=== PATIENT | male | born 1960 | race Caucasian/White ===

== ENCOUNTER 2017-07-27 09:07 | Observation (INO) | payer OTHER ==
[~2017-07-27] VITALS: Ht 175.3 cm; Wt 145.7 kg
[~2017-07-27 09:07] MED LIST: BUPIVACAINE/EPINEPHRINE 0.5% 50 ML VIAL ONE; GABA300C5 PO; GELFOAM SIZE 100 ONE; GENTAMICIN SULFATE 80 MG/2 ML VIAL ONE; HYDR12.56 PO; LISI10TA3 PO; THROMBIN (TOPICAL) 5,000 UNIT VIAL ONE; TIZA4TAB PO; ceFAZolin 2 GM PREMIX 50 ML ONE; methylPREDNISolone ACETATE 40 MG/ML VIAL ONE
[2017-07-27] MEDS ORDERED: SODIUM CHLORID 0.9% 500 ML IV PRN (09:45)
[2017-07-27] MEDS ORDERED: CHLORHEXIDINE GLUCONATE 2 % 1 PACK (2 CLOTHS) TOPICAL PRN (09:45)
[2017-07-27] MEDS ORDERED: POVIDONE IODINE 5% (ANTISEPSIS KIT) 4 APPLICATIONS EACH NARE PRN (09:45)
[2017-07-27] MEDS ORDERED: LACTATED RINGER'S 1000 ML IV PRN (09:45)
[2017-07-27] MEDS ORDERED: INSULIN HUMAN REGULAR 1,000 UNITS/10 ML VIAL SQ PRN (09:45)
[2017-07-27] MEDS ORDERED: METOPROLOL TARTRATE 25 MG TAB PO PRN (09:45)
[2017-07-27] MEDS ORDERED: FLUT1INH7 INH (09:54)
[2017-07-27] MEDS ORDERED: VANCOMYCIN HCL 1000 MG ON-CALL/NS 250 ML IV SCH ×2 (10:00)
[2017-07-27] MEDS ORDERED: SODIUM CHLOR 0.9% 1000 ML INJ 1,000 ML IV SCH (10:00)
[2017-07-27 10:11] LABS: APTT (PATIENT) 39.2 SEC (24.3-30.1)
[2017-07-27] MEDS ORDERED: PROPOFOL 200 MG/20 ML AMP IV ONE (12:00)
[2017-07-27] MEDS ORDERED: GLYCOPYRROLATE 1 MG/5 ML SYRINGE IV PUSH ONE (12:00)
[2017-07-27] MEDS ORDERED: NEOSTIGMINE 3 MG/3 ML SYR IV ONE (12:00)
[2017-07-27] MEDS ORDERED: LACTATED RINGER'S 1000 ML INJ 1,000 ML IV ONE (12:00)
[2017-07-27] MEDS ORDERED: ONDANSETRON HCL 4 MG/2 ML VIAL IV PUSH ONE (12:00)
[2017-07-27] MEDS ORDERED: DEXAMETHASONE SOD PHOS 4 MG/ML VIAL IV ONE (12:00)
[2017-07-27] MEDS ORDERED: MIDAZOLAM HCL 2 MG/2 ML VIAL IV ONE (12:00)
[2017-07-27] MEDS ORDERED: PHENYLEPH/NS 1000 MCG/10 ML SYR IV ONE (12:00)
[2017-07-27] MEDS ORDERED: LIDOCAINE HCL 1% PF 5 ML AMPULE OTHER ONE (12:00)
[2017-07-27] MEDS ORDERED: ROCURONIUM INJ 50 MG/5 ML SYRINGE IV PUSH ONE (12:00)
[2017-07-27] MEDS ORDERED: PHENYLEPHRINE HCL 10 MG/ML VIAL IV ONE (12:00)
[2017-07-27] MEDS ORDERED: NORMOSOL R INJ 1,000 ML IV ONE (12:00)
[2017-07-27] MEDS ORDERED: ESMOLOL HCL 100 MG/10 ML VIAL IV ONE (12:00)
[2017-07-27] MEDS ORDERED: ACETAMINOPHEN 1000 MG/100 ML 100 ML IV ONE (12:12)
[2017-07-27] MEDS ORDERED: HYDROmorphone HCL PF 2 MG/ML VIAL ONE (12:13)
[2017-07-27] MEDS ORDERED: VANCOMYCIN HCL 1000 MG VIAL ONE (12:36)
[2017-07-27] MEDS ORDERED: SODIUM CHLORIDE 0.9% FLUSH 5 ML FLUSH IVF PRN (15:15)
[2017-07-27] MEDS ORDERED: MAGNESIUM HYDROXIDE SUSP 30 ML CUP PO PRN (15:15)
[2017-07-27] MEDS ORDERED: ACETAMINOPHEN/HYDROcodone 325 MG/10 MG TAB PO PRN (15:15)
[2017-07-27] MEDS ORDERED: GLUCAGON 1 MG/ML VIAL OTHER PRN (15:15)
[2017-07-27] MEDS ORDERED: RESP: ALBUTEROL 2.5 MG/3 ML NEB (PRN) INH (15:15)
[2017-07-27] MEDS ORDERED: ONDANSETRON HCL 4 MG/2 ML VIAL IV PRN (15:15)
[2017-07-27] MEDS ORDERED: CYCLOBENZAPRINE HCL 10 MG TAB PO PRN (15:15)
[2017-07-27] MEDS ORDERED: ACETAMINOPHEN 325 MG TAB PO PRN (15:15)
[2017-07-27] MEDS ORDERED: MORPHINE SULFATE 4 MG/ML INJ IV PUSH PRN ×2 (15:15)
[2017-07-27] MEDS ORDERED: MENTHOL LOZENGE BUCCAL PRN (15:15)
[2017-07-27] MEDS ORDERED: cloNIDine HCL 0.1 MG TAB PO/NG PRN (15:15)
[2017-07-27] MEDS ORDERED: DEXTROSE 50% IN WATER 50 ML VIAL(D50) IV PUSH PRN (15:15)
--- NOTE | 2017-07-27 15:57 | RADRPT ---
EXAM DATE/TIME: 07/27/2017 13:23 [place] COMPARISON: No previous studies available for comparison. INDICATIONS : Level Localization L4,L5 for laminectomy. MEDICAL HISTORY : None. SURGICAL HISTORY : None. ENCOUNTER: Initial ACUITY: 1 day PAIN SCORE: Non-responsive. LOCATION: [facility]. FINDINGS: FINDINGS: Single lateral view of the spine demonstrates the spine to be in anatomic alignment. A probe is in pl jamie at the L4-L5 disc space. CONCLUSION: 1. Postsurgical changes as above. Bunny Davies MD on July 27, 2017 at 15:55 Board Certified Radiologist. This report was verified electronically.
[2017-07-27] MEDS: SODIUM CHLOR 0.9% 1000 ML INJ 1,000 ML IV SCH (16:00)
[2017-07-27] MEDS ORDERED: HYDR-3583 PO (16:06)
--- NOTE | 2017-07-27 16:27 | PD.OP ---
Operative Report Date of Surgery: Jul 27, 2017 Preoperative Diagnosis: Lumbar spinal stenosis Postoperative Diagnosis: Lumbar spinal stenosis Procedure: L4-L5 decompressive left hemilaminectomy, mesial facetectomy, foraminotomy with microsurgical resection of the disc Anesthesia: general Surgeon: Ozzie Parson Leasing Professional(s): Heena Pope Operation and Findings: INDICATIONS FOR THE SURGICAL PROCEDURE Mr. Jung is a 57 year-old male who presented with intractable back pain and bishnu evidence of bilateral L5 lower extremity radiculopathy, worse on the left side. he had focal stenosis and a disk herniation. He failed maximum nonsurgical management including multiple modalities of conservative treatment as well as pain management interventions by an interventional pain specialist. A surgical decompression was indicated as a last resort. The [id number] details of the procedure, indications, alternatives, risks and potential complications were fully discussed with the patient. The patient fully understood. All the questions were answered. No guarantees were given. The patient voiced requesting the procedure and provided informed consents. The patient was offered the alternative of delaying the procedure and continuing with nonsurgical management. DETAILS OF THE SURGICAL PROCEDURE After the induction of general anesthesia, endotracheal intubation was performed. A Humphrey catheter, bilateral XIMENA hose and sequential compression devices were placed and kept throughout the procedure. The patient was positioned prone on a Keven table over a Matteo frame. All pressure points were carefully padded with eggcrate mattress. The eyes were tapped shut after ointment was applied by the anesthesiologist to prevent corneal abrasion. A Yesy hugger was placed over the exposed lower body to maintain control of the core body temperature. The lower lumbar region was prepped and draped in the usual sterile fashion. A spinal needle was placed on the paraspinal muscle and a cross-table lateral x-ray performed with a C-arm. The skin incision was made over the spinous process of L4 and L5 along the midline. Small subcutaneous bleeders were controlled with a bipolar. The subcutaneous tissue and thoracolumbar fascia was opened with the Bovie and the spinous process of L4 and L5 were exposed. Then, using a Snyder elevator and a Bovie a subperiosteal dissection was performed over the spinous process lamina and facet at L4 and L5 on the right side. A microdiscectomy self-retaining retractor was placed and an instrument was placed underneath the lamina of L5, and another cross-table lateral x-ray performed for radiological confirmation of the level. At this point in the procedure the operating microscope was draped in the usual sterile fashion and brought to the field. The rest of the surgical procedure was performed using microsurgical dissection technique with exception of the closure. Once the level was confirmed, a TPS drill brought to the field and a hemilaminectomy was performed at L4-L5 on the right side in standard fashion using the AM-8 drill bit, exposing the ligamentum flavum. The superior free border of the ligamentum flavum was from the dura with a ligament dissector and the ligamentum flavum was carefully removed with a 3 mm thin footplate Kerrison. The ligament Flavum and facets were significantly hypertrophic resulting on mass effect on the dural sac. Then, the medial aspect of the facet was drilled and undermined and the exiting L5 nerve root was identified and followed towards the foramen. A foraminotomy was performed with a 3 mm Kerrison. Then, the TPS drill was used to undermine the base of the spinous process, in order to carry out the decompression across the midline to the contralateral side. The ligamentum flavum across the midline was dissected from the dura with a ligament dissector and carefully removed with a 3 mm thin footplate Kerrison. An appropriate decompression of the dural sac and nerve root was achieved. Epidural veins located laterally to the dural sac were carefully coagulated with a bipolar and incised with microscissors. The dura was very scar and adherent to the anulus, and during the dissection a small durotomy was unavoidable, with CSF leak. Gentle medial retraction of the dural sac allowed inspection of the disc space. The patient had a broad-based disc protusion which combined with the hypertrophic facets and ligamentun flavum was producing significant stenosis with mass effect on the dural sac and nerve root. Microdiscectomy was then deemed necessary. The annulus fibrosus was thoroughly coagulated with the bipolar and incised with a #10 blade. Then, a microdiscectomy was carried out in the standard fashion using straight and up- biting pituitary forceps. A reverse angle curet was used to push the extruded disc fragments into the disc space so they could be removed with pituitary forceps. Special attention was placed on the middle nerve root and axilla of the nerve root where disc fragments were found, which were carefully dissected and pushed into the disc space and removed with the Kerrison. A good decompression was achieved. The disc space was then irrigated with antibiotic solution. The dura was repaired using 6-0 Prolene, and the repair was sealed using duraseal glue. The incision was then thoroughly irrigated with antibiotic solution and hemostasis secured with the bipolar. A Valsalva maneuver failed to show any cerebrospinal fluid leak or bleeding. The incision was irrigated and closed in layers. 0 Vicryl with interrupted sutures was used to close the thoracolumbar fascia and superficial fascia. The subcutaneous tissue was closed with 3-0 Vicryl. The skin was closed with 4-0 running subcuticular Vicryl. Dermabond was applied to the skin. At the end of the procedure, the sponge, needle and instrument counts were all correct. Estimated blood loss was less than 50 cc. No blood transfusion was given. No intraoperative complications occurred. The patient received prophylactic antibiotics. The patient was then extubated and transferred to the recovery room in stable condition Ozzie Parson MD Jul 27, 2017 16:27
[2017-07-27 17:00] VITALS: BP 121/63; PULSE 88; RESP 18; TEMP 97.7; O2SAT 96
[2017-07-27] MEDS: INSULIN ASPART SUPPLEMENTAL SCALE SQ SCH ×3 (17:00→21:00)
[2017-07-27] MEDS ORDERED: *morphine SULFATE 8 MG/ML PERIprocedure ONLY ONE (17:32)
[2017-07-27] MEDS: GABAPENTIN 300 MG CAP PO SCH (18:00)
[2017-07-27 19:40] VITALS: BP 107/58; PULSE 87; RESP 19; TEMP 96.7; O2SAT 95
[2017-07-27] MEDS: ACETAMINOPHEN/HYDROcodone 325 MG/10 MG TAB PO PRN (19:59)
[2017-07-27] MEDS: SODIUM CHLORIDE 0.9% FLUSH 5 ML FLUSH IVF SCH (19:59)
[2017-07-27] MEDS: DOCUSATE SODIUM 100 MG CAP PO SCH (20:55)
[2017-07-27] MEDS: ceFAZolin 2 GM PREMIX 50 ML IV SCH (20:58)
[2017-07-27] MEDS ORDERED: CHLORHEXIDINE GLUCONATE 4% SOLN 120 ML BTL TOP SCH (21:00)
[2017-07-27 23:30] VITALS: BP 98/58; PULSE 93; RESP 19; TEMP 96.8; O2SAT 94
[2017-07-28] MEDS: ACETAMINOPHEN/HYDROcodone 325 MG/10 MG TAB PO PRN ×3 (02:32→13:43)
[2017-07-28] MEDS: SODIUM CHLOR 0.9% 1000 ML INJ 1,000 ML IV SCH ×2 (02:32→12:00)
[2017-07-28 04:15] VITALS: BP 95/62; PULSE 80; RESP 18; TEMP 96.7; O2SAT 94
[2017-07-28] MEDS: ceFAZolin 2 GM PREMIX 50 ML IV SCH ×2 (05:52→13:22)
[2017-07-28 06:13] VITALS: O2SAT 95
[2017-07-28 08:00] VITALS: BP 98/58; PULSE 74; RESP 18; TEMP 96.5; O2SAT 100
[2017-07-28] MEDS: INSULIN ASPART SUPPLEMENTAL SCALE SQ SCH ×2 (08:00→12:00)
[2017-07-28] MEDS: DOCUSATE SODIUM 100 MG CAP PO SCH (08:33)
[2017-07-28] MEDS: GABAPENTIN 300 MG CAP PO SCH ×2 (08:33→13:22)
[2017-07-28] MEDS: SODIUM CHLORIDE 0.9% FLUSH 5 ML FLUSH IVF SCH (08:34)
[2017-07-28] MEDS ORDERED: LISINOPRIL 10 MG TAB PO SCH (09:00)
[2017-07-28] MEDS ORDERED: HYDROCHLOROTHIAZIDE 12.5 MG CAP PO SCH (09:00)
[2017-07-28] MEDS ORDERED: FLUTICASONE 200 MCG/VILANTEROL 25 MCG INHALER INH SCH (09:00)
[2017-07-28] MEDS ORDERED: PANTOPRAZOLE SOD 40 MG DELAYED RELEASE TAB PO SCH (09:00)
--- NOTE | 2017-07-28 10:29 | HHI.FF ---
Face to Face Verification Diagnosis: (1) S/P lumbar laminectomy Home Health Nursing Order: Signs/symptoms of disease process Wound care and dressing changes (please see wound care discharge instructions) Nursing assessment with vital signs I have seen patient Michael Jung on 07/28/17. My clinical findings support the need for the requested home health care services because: Med compliance is questionable I certify that my clinical findings support that this patient is homebound because: Post-op weakness Chen Peck Jul 28, 2017 10:29
[2017-07-28 12:00] VITALS: BP 100/66; PULSE 78; RESP 17; TEMP 97.1; O2SAT 100
--- NOTE | 2017-07-28 13:14 | HHI.DCPOC ---
Discharge Care Plan Diagnosis: (1) S/P lumbar laminectomy Goals to Promote Your Health * To prevent worsening of your condition and complications * To maintain your health at the optimal level Directions to Meet Your Goals Take your medications as prescribed Follow your dietary instruction Follow activity as directed Keep your appointments as scheduled Take your immunizations and boosters as scheduled If your symptoms worsen call your PCP, if no PCP go to Urgent Care Center or Emergency Room Smoking is Dangerous to Your Health. Avoid second hand smoke Call the 24-hour hour crisis hotline for domestic abuse at Chen Peck Jul 28, 2017 13:14
--- NOTE | 2017-07-28 13:14 | HHI.DS ---
Discharge Summary Admission Date Jul 27, 2017 at 15:16 Discharge Date: Jul 28, 2017 Admitting Diagnosis s/p lumbar laminectomy, microdiscectomy (1) S/P lumbar laminectomy ICD Code: Z98.890 - Other specified postprocedural states Brief History Mr. Jung is a 57 year-old male who presented with intractable back pain and bishnu evidence of bilateral L5 lower extremity radiculopathy, worse on the left side. he had focal stenosis and a disk herniation. He failed maximum nonsurgical management including multiple modalities of conservative treatment as well as pain management interventions by an interventional pain specialist. A surgical decompression was indicated as a last resort. Significant Findings Laboratory Tests Test 07/27/17 09:35 Activated Partial Thromboplast Time 39.2 SEC (24.3-30.1) Imaging Last Impressions Lumbar Spine X-Ray 07/27/17 0000 Signed Impressions: Service Date/Time: Thursday, July 27, 2017 13:23 - CONCLUSION: 1. Postsurgical changes as above. Bunny Davies MD PE at Discharge Mr. Jung is alert, awake and oriented to time, place and person. Speech is fluent. He is resting comfortably in bed in no acute distress. His wound is clean and dry. Cranial nerve examination: pupils to be equal, round and reactive to light. Extra-ocular movements are intact. Facial motor and symmetrical. Neck is soft and supple with a good range of motion without pain. Motor: moves all major muscle groups of both upper and lower extremities. There is a bilateral plantar flexion response. Hospital Course Mr. Jung underwent a L4-L5 decompressive left hemilaminectomy, mesial facetectomy, foraminotomy with microsurgical resection of the disc on Jul 27, 2017 for Lumbar spinal stenosis. He was placed on bed rest overnight for dural tear. He was cleared out of bed the following morning by Dr. Parson and discharged home with home health care. Wound care, activity restrictions, and signs and symptoms to watch for were discussed. Pt Condition on Discharge: Stable Discharge Disposition: Disch w/ Home Health Serv Discharge Instructions DIET: Follow Instructions for: Heart Healthy Diet ACTIVITIES You can perform: Weight Bearing As Maye ADDITIONAL Activity Instructio: Avoid strenuous activities, heavy lifting, overhead activities, repetitive bending, twisting, pushing, pulling or any activities which might result in stress over the spine. Avoid situation that will put at risk for falls. Use assistive device as needed for walking. Wear lumbar brace when out of bed. Follow up Referrals: SNF/LONG-TERM/HH with [facility] New Medications: Hydrocodone-Acetaminophen (Hydrocodone-Acetaminophen) 10-325 mg Tab 1 TAB PO Q8HR PRN for PAIN SCALE 1 TO 10, #90 TAB Continued Medications: Fluticasone-Vilanterol Inh (Breo Ellipta Inh) 200-25 Mcg/Act Inh 1 PUFF INH DAILY, #1 INHALER 0 Refills Use daily at the same time. Gabapentin (Gabapentin) 300 Mg Cap 300 MG PO TID Hydrochlorothiazide (Hydrochlorothiazide) 12.5 Mg Tab 12.5 MG PO DAILY Lisinopril (Lisinopril) 10 Mg Tab 10 MG PO DAILY Tizanidine (Tizanidine) 4 Mg Tab 4 MG PO Q8HR PRN for SPASM Chen Peck Jul 28, 2017 13:14
== END 2017-07-28 15:57 | disposition home health service (06) ==
LOC: HSDC 09:07 → HSDI 15:16 → N06B 17:56 → N06A 18:54
PROVIDERS: ADMIT Neurological Surgery; ATTEND Neurological Surgery
DX: M48.061 Spinal stenosis, lumbar region without neurogenic claudication (principal); M51.16 Intervertebral disc disorders with radiculopathy, lumbar region; I10 Essential (primary) hypertension; J44.9 Chronic obstructive pulmonary disease, unspecified; J45.909 Unspecified asthma, uncomplicated; K21.9 Gastro-esophageal reflux disease without esophagitis; G62.9 Polyneuropathy, unspecified; E66.9 Obesity, unspecified; Z87.891 Personal history of nicotine dependence; Z79.899 Other long term (current) drug therapy
CPT/HCPCS: 72020; 76000; 82948; 85730; 94150; 96361; 96365; 96375; 96376; G0378; G8987-GP; G8988-GP; J0131; J0690; J1030; J1100; J1170; J1580; J1815; J2250; J2270; J2370; J2405; J2710; J3010; J3370; J7030; J7050; J7120; L0627

== ENCOUNTER 2017-09-11 01:07 | Inpatient (IN) | payer OTHER ==
[~2017-09-11] VITALS: Ht 175.3 cm; Wt 138.1 kg
[2017-09-11] VITALS (11 sets, daily range): BP systolic 88–118; BP diastolic 51–63; PULSE 74–92; RESP 14–30; TEMP 97.6–99.5; O2SAT 92–99
[~2017-09-11 01:07] MED LIST changes: +BACT800T5 PO; -BUPIVACAINE/EPINEPHRINE 0.5% 50 ML VIAL ONE; +CEPH500C PO; +FLUT1INH7 INH; -GELFOAM SIZE 100 ONE; -GENTAMICIN SULFATE 80 MG/2 ML VIAL ONE; +METF500T; -THROMBIN (TOPICAL) 5,000 UNIT VIAL ONE; -ceFAZolin 2 GM PREMIX 50 ML ONE; -methylPREDNISolone ACETATE 40 MG/ML VIAL ONE
[2017-09-11] MEDS ORDERED: GADOBENATE DIM PF 529 MG/ML 5 ML VIAL (for RAD MRI) IV ONE (01:08)
[2017-09-11] MEDS: NOREPINEPHRINE-DEXTROSE DRIP 250 ML IV PRN ×2 (01:43→11:59)
[2017-09-11] MEDS ORDERED: PIPERACIL-TAZO 3.375 GM PREMIX 50 ML IV SCH (01:45)
[2017-09-11] MEDS ORDERED: TERBUTALINE INJ 1 MG/ML AMP SQ PRN (01:45)
[2017-09-11] MEDS ORDERED: diphenhydrAMINE HCL 50 MG/ML VIAL IV PUSH ONE (02:45)
--- NOTE | 2017-09-11 04:12 | HHI.HP ---
HPI Service Critical Care Medicine Primary Care Physician No Primary Care Physician Admission Diagnosis post operative complication Diagnosis: Travel History International Travel<30 Days: No Contact w/Intl Traveler <30 Da: No Traveled to Known Affected Are: No History of Present Illness 57 yo M with PMH of HTN, diabetes, obesity, and chronic LBP who underwent L4-L5 decompressive left hemilaminectomy, mesial facetectomy, foraminotomy with microsurgical resection of the disc on 07/27/[address] Parson. He was seen by Dr. aPrson in clinic on 09/09 due to pain in his left back. He was afebrile at that time but reportedly had warmth on his back and was started on Bactrim and Keflex which he took. At around 4 pm on 09/10 he developed "cold sweats", dizziness, and worsening back pain to the point that he said he could barely make it to the bathroom.. He presented to [facility]. There he had temp of 100.0. CT scan demonstrated 8.6 x 7 cm fluid collection in the superficial fascia. It was felt to represent seroma though hematoma or abscess could not be excluded. He had a normal white count of 10. He was hypotensive with blood pressure in the 60s. He was given 1 L NS bolus, epinephrine 0.3 mg subcut, benadryl 25 mg po, epi 1 mg IV, Vancomycin 2 gram, Zosyn 4.5 gram, Morphine 2mg IV and Zofran 4 mg IV at outside hospital. R IJ CVL was placed and he was started on levophed which is running at 5 g per KG per minute. [place] [facility] [place]. MRI has been ordered. He currently complains of low back pain and thirst. He has a diffuse blanching erythematous rash over his entire thorax anteriorly and posteriorly and all extremities. He states the rash was present upon arrival to the outside hospital and it is not pruritic. He does have some palmar pruritus without palmar rash. He denies chest pain, shortness of breath, wheezing. He states he has been on burst steroids in the past up to 3 days for "his breathing" but denies any prolonged steroid use. It does not appear that he receives steroids at the outside hospital. Review of Systems ROS Limitations: Clinical Condition Past Family Social History Allergies: Coded Allergies: methadone (Verified Allergy, Severe, RESPIRATORY ARREST, 09/11/17) sulfamethoxazole (Verified Allergy, Severe, 09/11/17) tetracycline (Verified Allergy, Severe, Rash, 09/11/17) A CHILD RASH TONGUE SWELLING trimethoprim (Verified Allergy, Severe, 09/11/17) cephalexin (Verified Allergy, Unknown, rash, 09/11/17) Received at same time as bactrim so unclear which abx caused it Past Medical History Hypertension Diabetes GERD Chronic low back pain Obesity Past Surgical History Right rotator cuff repair Hemorrhoidectomy Reported Medications Keflex 500 mg's by mouth every 8 hours Bactrim 1 tab by mouth twice a day Lisinopril 10 mg by mouth daily Gabapentin 300 mg by mouth 3 times a day HCTZ 12.5 mill grams by mouth daily Breo 1 puff inhaled daily Metformin 500 mg by mouth daily Family History Father had asthma and had a pulmonary embolus. Reportedly of kidney failure Social History He previously smoked "socially" for 8 years. Quit smoking 35 years ago He chews tobacco Drink alcohol occasionally No illicit drug use Physical Exam Vital Signs Vital Signs Date Time Temp Pulse Resp B/P (MAP) Pulse Ox O2 Delivery O2 Flow Rate FiO2 09/11/17 03:45 78 16 88/54 (65) 99 Room Air 09/11/17 02:19 76 22 99/51 (67) 98 Room Air 09/11/17 01:43 75 103/54 09/11/17 01:35 74 16 103/54 (70) 97 Room Air 09/11/17 01:13 97.6 82 18 90/62 (71) 97 Physical Exam GENERAL: Well-nourished, well-developed, pleasant, obese male who is laying in the ED gurney. SKIN: Warm and dry. There is diffuse blanching non-urticarial rash overlying anterior and posterior thorax and extremities that appears to be consistent with drug reaction HEAD: Atraumatic. Normocephalic. EYES: Pupils equal and round. No scleral icterus. No injection or drainage. ENT: No nasal bleeding or discharge. Mucous membranes pink and moist. NECK: Trachea midline. No JVD. CARDIOVASCULAR: Regular rate and rhythm, sinus rhythm on the monitor with rate in the 70s. No murmurs rubs or gallops. RESPIRATORY: Reading comfortably with no accessory muscle use. Clear to auscultation without wheezing. On room air with sats 99%. GASTROINTESTINAL: Abdomen soft, non-tender, nondistended. Palpation on his abdomen exacerbates his left low back pain but he denies abdominal pain. Hepatic and splenic margins not palpable. MUSCULOSKELETAL: Extremities without clubbing, cyanosis, or edema. No obvious deformities. NEUROLOGICAL: Awake and alert, oriented 3. No obvious cranial nerve deficits. Motor grossly within normal limits. Five out of 5 muscle strength in the arms and legs. Normal speech. Laboratory Laboratory Tests Test 09/11/17 03:25 Caprini VTE Risk Assessment Caprini Risk Assessment Model Point Value = 1 Point Value = 2 Point Value = 3 Point Value = 5 Age 41-60 Minor surgery BMI > 25 kg/m2 Swollen legs Varicose veins or History of unexplained or recurrent spontaneous Oral contraceptives or hormone replacement Sepsis (< 1 month) Serious lung disease, including pneumonia (< 1 month) Abnormal pulmonary function Acute myocardial infarction Congestive heart failure (< 1 month) History of inflammatory bowel disease Medical patient at bed rest Age 61-74 Arthroscopic surgery Major open surgery (> 45 min) Laparoscopic surgery (> 45 min) Malignancy Confined to bed (> 72 hours) Immobilizing plaster cast Central venous access Age >= 75 History of VTE Family history of VTE Factor V Leiden Prothrombin [id number] Lupus anticoagulant Anticardiolipin antibodies Elevated serum homocysteine Heparin-induced thrombocytopenia Other congenital or acquired thrombophilia Stroke (< 1 month) Elective arthroplasty Hip, pelvis, or leg fracture Acute spinal cord injury (< 1 month) Prophylaxis Regimen Total Risk Factor Score Risk Level Prophylaxis Regimen 0-1 Low Early ambulation 2 Moderate Order ONE of the following: *Sequential Compression Device (SCD) *Heparin 5000 units SQ BID 3-4 Higher Order ONE of the following medications: *Heparin 5000 units SQ TID *Enoxaparin/Lovenox 40 mg SQ daily (WT < 150 kg, CrCl > 30 mL/min) *Enoxaparin/Lovenox 30 mg SQ daily (WT < 150 kg, CrCl > 10-29 mL/min) *Enoxaparin/Lovenox 30 mg SQ BID (WT < 150 kg, CrCl > 30 mL/min) AND/OR *Sequential Compression Device (SCD) 5 or more Highest Order ONE of the following medications: *Heparin 5000 units SQ TID (Preferred with Epidurals) *Enoxaparin/Lovenox 40 mg SQ daily (WT < 150 kg, CrCl > 30 mL/min) *Enoxaparin/Lovenox 30 mg SQ daily (WT < 150 kg, CrCl > 10-29 mL/min) *Enoxaparin/Lovenox 30 mg SQ BID (WT < 150 kg, CrCl > 30 mL/min) AND *Sequential Compression Device (SCD) Assessment and Plan Assessment and Plan NEURO: Fluid collection ?abscess following L4/L5 decompressive laminectomy 07/27/17 Peripheral neuropathy MRI report pending Neurosurgery consulted for recommendations. Patient known to Dr. Parson. Adjust gabapentin due to renal failure Lortab as needed for pain. Morphine as needed for breakthrough pain RESP: Asthma On room air. Incentive spirometry every hour awake. Albuterol every 2 hours as needed. Continue Breo daily CV: Shock - presumably septic shock. Anaphylaxis is a possibility given his rash but there is no wheezing, respiratory symptoms, vomiting, diarrhea, or other anaphylactic symptoms so will presume sepsis until proven otherwise. Lactic acidemia History of essential hypertension Received 1 liter normal saline bolus at outside hospital. We'll give an additional 1 L now and initiate maintenance IV fluids On levophed wean to maintain mean arterial pressure greater than 65 Lactic acid at outside hospitals 3.1 Check cortisol, troponin, EKG Hold home lisinopril 10 daily due to hypotension and acute kidney injury. Hold HCTZ 12.5 mill grams by mouth daily. GI: GERD NPO. Protonix 40 mg by mouth daily FEN/RENAL: Acute kidney injury Creatinine at outside hospital was 2.15. Baseline creatinine 0.9. Received IV contrast at outside hospital 09/11 Insert Humphrey to monitor urine output as marker of perfusion. Monitor intake and output. Monitor electrolytes and replace as clinically indicated. Obtain urine eosinophils. Obtain CPK. Renal u/s. Bolus additional 1 L normal saline now. 0.9 NaCl at 125 L per hour ID: Drug reaction Fluid collection ?abscess following L4/L5 decompressive laminectomy 07/27/17 Appears there is drug reaction, presumably to his outpatient bactrim or keflex as patient says rash was present prior to presentation at outside hospital. Solumedrol 40 mg IV every 6 hours, Benadryl 50 IV every 6 hours, famotidine. Will hold pcn/cephalopsporin for now. Meropenem 1 g IV every 8 hours. Continue vancomycin with pharmacy consult for dosing. Reportedly blood cultures were sent at outside hospital. We'll need to call to follow-up results. Additional blood cultures were sent him [facility] ED. Will send urinalysis and urine culture as well. Neurosurgery to see regarding fluid collection and will obtain fluid culture. Obtained CRP. Consult ID. HEME: Monitor CBC ENDO: Diabetes mellitus Monitor bedside glucose closely particularly while on steroids. Initiate low- dose insulin sliding scale as indicated Hold metformin 500 daily PROPH: SCDs for DVT prophylaxis. Pharmacologic DVT prophylaxis when appropriate from neurosurgical standpoint. Protonix 40 mg by mouth daily for stress ulcer prophylaxis and history of GERD ACCESS: Right IJ central venous line placed at [facility] 09/11/17 Level III H&P Eleni Dyson MD Sep 11, 2017 04:12
[2017-09-11] MEDS ORDERED: SODIUM CHLOR 0.9% 1000 ML INJ 1,000 ML IV ONE (04:45)
[2017-09-11] MEDS ORDERED: MISCELLANEOUS PHARMACY INFORMATION XX PRN (05:00)
[2017-09-11] MEDS ORDERED: ASP: Documented allergy to Penicillins or Cephalosporins PRN (05:00)
[2017-09-11] MEDS ORDERED: Vancomycin Consult Pharmacy 1 EA OTHER SCH (05:00)
--- NOTE | 2017-09-11 05:00 | PD ---
HPI Chief Complaint: Fever Time Seen by Provider: 01:15 Travel History International Travel<30 days: No Contact w/Intl Traveler<30days: No Traveled to known affect area: No History of Present Illness HPI pt is a morbidly obese male that had a laminectomy from Dr Henderson in early july . in the last week he developed back pain over the incison sight and Dr henderson visit 2 days ago , was started on cellulitis coverage meds : Keflex and Bactrim , then pt developed severe weakness to his legs and and went to [facility] and was started on Zosyn and Vanco ..after a CT showed a large 7 x 8 cm collection in the soft tissue back @ L4 area , seroma vs abscess or dural leak questioned . Now pt transferred to NS service that did operation . Pt started on Levaphed 5 mcg/min and sent to [facility] . pt is awake and alert, no altered mental status , no leg weakness , denies bowel or bladder incontinence. I immediately order the MRI and call Dr Henderson to let him Know that the patient is in the ER and needs NS intervention , Pt vitals 103/60 on 5mcg/min of levophed. . Pt reports localized pain that caused him to feel he had leg weakness. However on Initial exam he was able to lift his legs bilaterally . Sensation also intact in lower legs. STAT MRI order and NS paged. [facility] Past Medical History Asthma: Yes Cancer: Yes (SKIN) COPD: Yes Diabetes: No Endocrine: No Gastrointestinal Disorders: No Genitourinary: No Hepatitis: No Hiatal Hernia: No Hypertension: Yes Immune Disorder: No Musculoskeletal: Yes Neurologic: Yes (NEUROPATHY) Psychiatric: No Reproductive: No Respiratory: Yes (COPD ASTHMA) Thyroid Disease: No Past Surgical History AICD: No Joint Replacement: No Pacemaker: No Other Surgery: Yes (LAMENECTOMY ) Social History Alcohol Use: Yes Tobacco Use: No Substance Use: No Allergies-Medications (Allergen,Severity, Reaction): Coded Allergies: methadone (Verified Allergy, Severe, RESPIRATORY ARREST, 09/11/17) sulfamethoxazole (Verified Allergy, Severe, 09/11/17) tetracycline (Verified Allergy, Severe, Rash, 09/11/17) A CHILD RASH TONGUE SWELLING trimethoprim (Verified Allergy, Severe, 09/11/17) cephalexin (Verified Allergy, Unknown, rash, 09/11/17) Received at same time as bactrim so unclear which abx caused it Reported Meds & Prescriptions Reported Meds & Active Scripts Active Cephalexin 500 Mg Cap 500 Mg PO Q8H Bactrim DS (Sulfamethoxazole-Trimethoprim) 800-160 Mg Tab 1 Tab PO BID Reported Metformin (Metformin HCl) 500 Mg Tab Breo Ellipta Inh (Fluticasone/Vilanterol) 200-25 Mcg/Act Inh 1 Puff INH DAILY Use daily at the same time. Hydrochlorothiazide 12.5 Mg Tab 12.5 Mg PO DAILY Gabapentin 300 Mg Cap 300 Mg PO TID Lisinopril 10 Mg Tab 10 Mg PO DAILY Review of Systems Except as stated in HPI: all other systems reviewed are Neg (pt reports localized pain and leg weakness) Musculoskeletal: Positive: Pain (lower back pain) Skin: Positive Rash Neurologic: Positive: Weakness, Other, No: Dizziness, Syncope, Focal Abnormalities, Coordination Problem, Tremor, Ataxia, Change in Mentation, Slurred Speech, Paresthesia, Incontinence, Seizures, Sensory Disturbance Physical Exam Narrative GENERAL: pt awake and laert talking in full sentences no AMS , bp 103/60 laying supine morbid obesity SKIN: Warm and dry. HEAD: Atraumatic. Normocephalic. EYES: Pupils equal and round. No scleral icterus. No injection or drainage. ENT: No nasal bleeding or discharge. Mucous membranes pink and moist. NECK: Trachea midline. No JVD. CARDIOVASCULAR: Regular rate and rhythm. RESPIRATORY: No accessory muscle use. Clear to auscultation. Breath sounds equal bilaterally. BACK L-spine tenderness midline GASTROINTESTINAL: Abdomen soft, non-tender, nondistended. Hepatic and splenic margins not palpable. MUSCULOSKELETAL: Extremities without clubbing, cyanosis, or edema. No obvious deformities. NEUROLOGICAL: Awake and alert. No obvious cranial nerve deficits. Motor grossly within normal limits. Five out of 5 muscle strength in the arms and legs. Normal speech. PSYCHIATRIC: Appropriate mood and affect; insight and judgment normal. Data Data Last Documented VS Vital Signs Date Time Temp Pulse Resp B/P (MAP) Pulse Ox O2 Delivery O2 Flow Rate FiO2 09/11/17 03:45 78 16 88/54 (65) 99 Room Air 09/11/17 01:13 97.6 Orders Orders Mri L Spine W&W/O Contrast (09/11/17 ) Piperacil-Tazo 3.375 Gm Premix (Zosyn 3. (11/18/17 01:45) Norepinephrine-Dextrose Drip (Levophed-D (09/11/17 01:45) Terbutaline Inj (Brethine Inj) (09/11/17 01:45) Lactic Acid Sepsis Protocol (09/11/17 01:40) Diphenhydramine Inj (Benadryl Inj) (09/11/17 02:45) Gadobenate Dimeglimine Pf Inj (Multihanc (09/11/17 01:08) Admit Order (Ed Use Only) (09/11/17 03:55) Labs Laboratory Tests Test 09/11/17 03:25 Lactic Acid Level 1.3 mmol/L MDM Medical Decision Making Medical Screen Exam Complete: Yes Emergency Medical Condition: Yes Differential Diagnosis post operative seroma , dural CSF leak into back soft tissue , vs epidural abscess less likely he was started vanco and zosyn at [facility] Narrative Course I read his transfer note explaining [facility] course with EPI amp given ? and then on Levaphed 5 mcg/min Pt is alert non toxic in appearance . strange presentation for a septic patient or post arrest ? pt his initial vitals are 103/60 on 5 mcg I called NS Dr Henderson associate answered and I told him of course in [place] and that I had ordered STAT MRI L-spine of pt. I called [facility] to alert of need for STAT MRI. and I re-evaluated need for continued pressor , When pt returned from MRI I admitted pt to ICU dr nazario and I discussed the pt and she wrote the orders for admit. I Ordered Zosyn 3.375Gr q 8hr and titration of the Levaphed. CC time 100minutes Critical Care Narrative CC time 100 mins as written above Diagnosis Primary Impression: Post-operative complication Qualified Codes: G97.82 - Other postprocedural complications and disorders of nervous system Additional Impressions: Spinal surgery in prior 3 months Status post spinal surgery Admitting Information Admitting Physician Requests: Admit Wayne Ruvalcaba MD Sep 11, 2017 04:59
[2017-09-11] MEDS: SODIUM CHLOR 0.9% 1000 ML INJ 1,000 ML IV SCH ×3 (05:08→21:08)
[2017-09-11] MEDS ORDERED: SENNOSIDES 8.6 MG TAB PO PRN (05:15)
[2017-09-11] MEDS ORDERED: MISCELLANEOUS NURSING INFORMATION XX SCH (05:15)
[2017-09-11] MEDS ORDERED: RESP: ALBUTEROL 2.5 MG/3 ML NEB (PRN) INH (05:15)
[2017-09-11] MEDS ORDERED: CHLORHEXIDINE GLUCONATE 2 % 1 PACK (2 CLOTHS) TOP PRN (05:15)
[2017-09-11] MEDS ORDERED: ONDANSETRON HCL 4 MG/2 ML VIAL IV PUSH PRN (05:15)
[2017-09-11] MEDS ORDERED: ACETAMINOPHEN/HYDROcodone 325 MG/5 MG TAB PO PRN (05:15)
[2017-09-11] MEDS ORDERED: MORPHINE SULFATE 2 MG/ML INJ IV PUSH PRN (05:15)
[2017-09-11] MEDS ORDERED: MAGNESIUM HYDROXIDE SUSP 30 ML CUP PO PRN (05:15)
[2017-09-11] MEDS ORDERED: LACTULOSE SYRUP 20 GM/30 ML CUP PO PRN (05:15)
[2017-09-11] MEDS ORDERED: MORPHINE SULFATE 4 MG/ML INJ IV PUSH PRN (05:15)
[2017-09-11] MEDS ORDERED: SODIUM CHLORIDE 0.9% FLUSH 10 ML FLUSH IV FLUSH PRN (05:15)
[2017-09-11] MEDS ORDERED: BISACODYL 10 MG SUPP RECTAL PRN (05:15)
--- NOTE | 2017-09-11 05:17 | RADRPT ---
EXAM DATE/TIME: 09/11/2017 02:46 [facility] COMPARISON: SPINE LUMBAR LATERAL ONLY, July 27, 2017, 13:23. INDICATIONS : Abscess. Post lumbar surgery. CONTRAST: 27 cc Multihance (gadobenate) IV MEDICAL HISTORY : Hypertension. Skin cancer. SURGICAL HISTORY : Discectomy, lumbar. Hemorrhoidectomy. Right side rotator cuff sx. ENCOUNTER: Initial ACUITY: 4-6 days PAIN SCORE: 8/10 LOCATION: Left lower back region. TECHNIQUE: Multiplanar multisequence MRI of the lumbar spine was performed with and without contrast. FINDINGS: There is a fluid filled sinus tract at the site of recent surgery which extends from the L4-5 disc, t hrough the left spinal canal, through the laminectomy site, and into the subcutaneous tissues. The s ubcutaneous component measures 7.9 x 5.0 cm and there is are 2 portions which extend to the dermal la zach. There is a thin connection measuring 6 mm in width which extends posterior to the spinous proce ss; a component adjacent to the spinous process measures 1 cm in size. The tract at the laminectomy defect measures 1.2 cm in width. A component in the bony spinal canal measures 1 cm in width and cau ses some flattening of the left margin of the thecal sac and appears to have a connection into the le ft facet joint. The tract at the margin of the disc measures 5 mm in width. The component within th e substance of the disc is thin but extends into the anterior one third of the disc. There is no enhancement within the fluid, however, there is irregular thickness enhancing soft tissue about the margin of subcutaneous and transverse view a components. There is a minimal amount of enh ancement adjacent to the annulus and no enhancement within the substance of the disc. The alignment of the vertebral bodies of the lumbar spine is maintained. No epidural fluid collectio ns seen and no deformity of the margins of the thecal sac above or below the level of the surgery. CONCLUSION: There is a fluid filled tract which communicates from the L4-5 disc, through the left bony spinal can al and into the subdermal soft tissues. The various components are measured above. There is enhance ment in the wall of the fluid collections in the the subcutaneous and intramuscular components of the tract. Aleksander Adler MD on September 11, 2017 at 5:00 Board Certified Radiologist. This report was verified electronically.
[2017-09-11 05:20] LABS: AUTOMATED NEUTROPHIL # 5.8 TH/MM3 (1.8-7.7); BASOPHIL % 0.2 % (0.0-2.0); EOSINOPHIL # 0.3 TH/MM3 (0-0.4); EOSINOPHIL % 4.4 % (0.0-4.0); HEMATOCRIT 35.9 % (39.0-51.0); HEMO FLAGS DIFF FINAL; LYMPH % 11.6 % (9.0-44.0); LYMPHOCYTE # 0.9 TH/MM3 (1.0-4.8); MEAN CELL VOLUME 87.9 FL (80.0-100.0); MEAN CORPUSCULAR HEMOGLOBIN 29.8 PG (27.0-34.0); MEAN CORPUSCULAR HGB CONC 33.9 % (32.0-36.0); MONO % 6.4 % (0.0-8.0); NEUT % 77.4 % (16.0-70.0); PLATELET COUNT 303 TH/MM3 (150-450); RED BLOOD COUNT 4.09 MIL/MM3 (4.50-5.90); RED CELL DISTRIBUTION WIDTH 14.3 % (11.6-17.2); WHITE BLOOD COUNT 7.5 TH/MM3 (4.0-11.0)
[2017-09-11] MEDS ORDERED: DEXTROSE 50% IN WATER 50 ML VIAL(D50) IV PUSH PRN (05:30)
[2017-09-11] MEDS ORDERED: GLUCAGON 1 MG/ML VIAL OTHER PRN (05:30)
[2017-09-11 05:47] LABS: ALT (GPT) 53 U/L (12-78); ANION GAP 7 MEQ/L (5-15); AST (GOT) 25 U/L (15-37); BICARBONATE 25.8 MEQ/L (21.0-32.0); BLOOD UREA NITROGEN 22 MG/DL (7-18); CHLORIDE 104 MEQ/L (98-107); GLOMERULAR FILTRATION RATE 38 ML/MIN (>89); POTASSIUM 3.7 MEQ/L (3.5-5.1); SODIUM (NA) 137 MEQ/L (136-145)
[2017-09-11 05:50] LABS: ALKALINE PHOSPHATASE 90 U/L (45-117); CREATINE KINASE 218 U/L (39-308); TOTAL BILIRUBIN ADULT 0.7 MG/DL (0.2-1.0)
[2017-09-11] MEDS ORDERED: FAMOTIDINE 20 MG/2 ML VIAL IV PUSH SCH (06:00)
--- NOTE | 2017-09-11 06:18 | RADRPT ---
EXAM DATE/TIME: 09/11/2017 05:03 [facility] COMPARISON: No previous studies available for comparison. INDICATIONS : Central Line placement MEDICAL HISTORY : Chronic obstructive pulmonary disease. Hypertension Skin cancer SURGICAL HISTORY : Laminectomy ENCOUNTER: Initial ACUITY: 1 day PAIN SCORE: 7/10 LOCATION: Bilateral chest FINDINGS: A single view of the chest demonstrates the lungs to be symmetrically aerated without evidence of mas s, infiltrate or effusion. No evidence pneumothorax. The cardiomediastinal contours are unremarkabl e. Osseous structures are intact. Right internal jugular catheter tip projects over the mid superio r vena cava. CONCLUSION: Right IJ catheter in good position. No evidence of pneumothorax. Aleksander Adler MD on September 11, 2017 at 6:17 Board Certified Radiologist. This report was verified electronically.
[2017-09-11] MEDS: methylPREDNISolone SOD SUCC 40 MG/1 ML VIAL IV PUSH SCH ×2 (06:41→11:58)
--- NOTE | 2017-09-11 07:37 | RADRPT ---
EXAM DATE/TIME: 09/11/2017 07:18 [facility] COMPARISON: No previous studies available for comparison. INDICATIONS : Increased BUN and creatinine. MEDICAL HISTORY : Hypertension. Gastroesophageal reflux disease. Neuropathy. COPD. Asthma. Hemorroid. Melenoma. SURGICAL HISTORY : Lamenectomy. Right rotator cuff surgery. ENCOUNTER: Initial ACUITY: 1 day PAIN SCORE: 0/10 LOCATION: Bilateral flank MEASUREMENTS: RIGHT KIDNEY: 11.3 x 5.0 x 5.6 cm LEFT KIDNEY: 13.0 x 5.5 x 5.7 cm FINDINGS: RIGHT KIDNEY: Renal cortex is normal in thickness and echotexture. No hydronephrosis, stone, or mass. LEFT KIDNEY: Renal cortex is normal in thickness and echotexture. No hydronephrosis, stone, or mass. BLADDER: Within normal limits given the degree of distension. CONCLUSION: Renal ultrasound within normal limits. Ramu Laguna MD on September 11, 2017 at 7:35 Board Certified Radiologist. This report was verified electronically.
[2017-09-11] MEDS ORDERED: MEROPENEM INJ 1,000 MG in SODIUM CHLORIDE 0.9% INJ 100 ML IV SCH (08:00)
[2017-09-11] MEDS: INSULIN ASPART SUPPLEMENTAL SCALE SQ SCH ×4 (08:00→21:00)
[2017-09-11] MEDS ORDERED: methylPREDNISolone SOD SUCC 125 MG/2 ML VIAL IV ONE (08:15)
[2017-09-11] MEDS: GABAPENTIN 100 MG CAP PO SCH ×3 (08:57→18:28)
[2017-09-11] MEDS: SODIUM CHLORIDE 0.9% FLUSH 10 ML FLUSH IV FLUSH SCH ×2 (08:58→21:00)
[2017-09-11] MEDS: PANTOPRAZOLE SOD 40 MG DELAYED RELEASE TAB PO SCH (08:58)
[2017-09-11] MEDS: diphenhydrAMINE HCL 50 MG/ML VIAL IV PUSH SCH ×2 (08:58→18:27)
[2017-09-11] MEDS: DOCUSATE SODIUM 50 MG/SENNA 8.6 MG TAB PO SCH ×2 (08:58→21:10)
[2017-09-11] MEDS: MEROPENEM INJ 1,000 MG in SODIUM CHLORIDE 0.9% INJ 100 ML IV SCH ×2 (09:00→21:09)
[2017-09-11] MEDS: FLUTICASONE 200 MCG/VILANTEROL 25 MCG INHALER INH SCH (09:00)
[2017-09-11] MEDS: ACETAMINOPHEN 325 MG TAB PO PRN ×2 (09:32→10:44)
[2017-09-11] MEDS ORDERED: diphenhydrAMINE HCL 50 MG/ML VIAL IV PUSH SCH (10:00)
[2017-09-11 10:45] LABS: BLOOD, URINE NEG (NEG); GLUCOSE,URINE NEG (NEG); KETONE, URINE NEG (NEG); NITRITE,URINE NEG (NEG); URINE COLOR LIGHT-YELLOW (YELLW/STRAW)
[2017-09-11 11:14] LABS: RBC, URINE 0-3 /hpf (0-3); SQUAMOUS EPITHELIAL CELL URINE 0-5 /hpf (0-5); WBC, URINE 0-2 /hpf (0-5)
[2017-09-11] MEDS: HYDROCORTISONE SOD SUCCINATE 100 MG VIAL IV PUSH SCH ×2 (11:58→18:00)
--- NOTE | 2017-09-11 12:37 | PD.CONS ---
History of Present Illness Service Infectious disease Consult Requested By Dr. Dyson Reason for Consult Evaluate patient with fluid collection in the operative site, status post lumbar laminectomy Primary Care Physician No Primary Care Physician Diagnoses: History of Present Illness Patient seen and examined. Records reviewed. 57 yo M with PMH of HTN, diabetes, obesity, and chronic LBP who underwent L4-L5 decompressive left hemilaminectomy, mesial facetectomy, foraminotomy with microsurgical resection of the disc on 07/27/[address] Parson. He was seen by Dr. Parson in clinic on 09/09 due to pain in his left back. He was afebrile at that time but reportedly had warmth on his back and was started on Bactrim and Keflex which he took. At around 4 pm on 09/10 he developed "cold sweats", dizziness, and worsening back pain to the point that he said he could barely make it to the bathroom.. He presented to [facility]. There he had temp of 100.0. CT scan demonstrated 8.6 x 7 cm fluid collection in the superficial fascia. It was felt to represent seroma though hematoma or abscess could not be excluded. He had a normal white count of 10. He was hypotensive with blood pressure in the 60s. He was given 1 L NS bolus, epinephrine 0.3 mg subcut, benadryl 25 mg po, epi 1 mg IV, Vancomycin 2 gram, Zosyn 4.5 gram, Morphine 2mg IV and Zofran 4 mg IV at outside hospital. R IJ CVL was placed and he was started on levophed which is running at 5 g per KG per minute. He was transferred to [facility] for neurosurgical consultation. MRI has been ordered. He currently complains of low back pain and thirst. He has a diffuse blanching erythematous rash over his entire thorax anteriorly and posteriorly and all extremities. He states the rash was present upon arrival to the outside hospital and it is not pruritic. He does have some palmar pruritus without palmar rash. He denies chest pain, shortness of breath, wheezing. He states he has been on burst steroids in the past up to 3 days for "his breathing" but denies any prolonged steroid use. It does not appear that he receives steroids at the outside hospital. Review of Systems Constitutional: DENIES: Fever, Weight loss Eyes: DENIES: Eye pain Ears, nose, mouth, throat: DENIES: Nasal discharge, Oral lesions, Throat pain, Ear Pain Respiratory: DENIES: Cough, Shortness of breath Cardiovascular: DENIES: Chest pain, Palpitations Gastrointestinal: DENIES: Abdominal pain, Constipation, Diarrhea, Nausea, Vomiting, Difficulty Swallowing Genitourinary: DENIES: Urinary incontinence, Urgency, Dysuria Musculoskeletal: COMPLAINS OF: Back pain, DENIES: Neck pain Integumentary: COMPLAINS OF: Pruritus, Rash Neurologic: DENIES: Headache, Localized weakness Psychiatric: DENIES: Hallucinations Past Family Social History Allergies: Coded Allergies: methadone (Verified Allergy, Severe, RESPIRATORY ARREST, 09/11/17) sulfamethoxazole (Verified Allergy, Severe, 09/11/17) tetracycline (Verified Allergy, Severe, Rash, 09/11/17) A CHILD RASH TONGUE SWELLING trimethoprim (Verified Allergy, Severe, 09/11/17) cephalexin (Verified Allergy, Unknown, rash, 09/11/17) Received at same time as bactrim so unclear which abx caused it Past Medical History Hypertension Diabetes GERD Chronic low back pain Obesity Past Surgical History Right rotator cuff repair Hemorrhoidectomy Lumbar hemilaminectomy Reported Medications I attest that I obtained, updated or reviewed the home and current medications. Reported Meds & Active Scripts Active Cephalexin 500 Mg Cap 500 Mg PO Q8H Bactrim DS (Sulfamethoxazole-Trimethoprim) 800-160 Mg Tab 1 Tab PO BID Reported Metformin (Metformin HCl) 500 Mg Tab Breo Ellipta Inh (Fluticasone/Vilanterol) 200-25 Mcg/Act Inh 1 Puff INH DAILY Use daily at the same time. Hydrochlorothiazide 12.5 Mg Tab 12.5 Mg PO DAILY Gabapentin 300 Mg Cap 300 Mg PO TID Lisinopril 10 Mg Tab 10 Mg PO DAILY Active Ordered Medications Current Medications Medications (Trade) Dose Ordered Sig/Cherry Route Start Time Stop Time Status Last Admin Norepinephrine Bitartrate 250 ml @ 7.5 mls/hr TITRATE PRN IV 09/11/17 01:45 09/11/17 11:59 (Brethine Inj) 1 mg UNSCH PRN SQ 09/11/17 01:45 (SoluMEDROL INJ) 40 mg Q6HR IV PUSH 09/11/17 06:00 09/11/17 11:58 (Pepcid Inj) 20 mg Q12H IV PUSH 09/11/17 06:00 09/11/17 06:41 Pharmacy Profile Note 0 ml @ 0 mls/hr UNSCH OTHER 09/11/17 05:00 (ASP Crit: Doc allergy to Penicillin/ Cephalosp) 1 UNSCH X1 PRN .XX 09/11/17 05:00 09/12/17 04:[address] ([facility] Pharmacy Information) 1 UNSCH X1 PRN XX 09/11/17 05:00 09/12/17 04:59 (Breo Ellipta 200-25 Inh) 1 puff DAILY INH 09/11/17 09:00 09/11/17 09:00 (Neurontin) 100 mg TID PO 09/11/17 09:00 09/11/17 12:02 Sodium Chloride 1,000 ml @ 125 mls/hr Q8H IV 09/11/17 05:08 09/11/17 05:08 (NS Flush) 2 ml UNSCH PRN IV FLUSH 09/11/17 05:15 (NS Flush) 2 ml BID IV FLUSH 09/11/17 09:00 09/11/17 08:58 (Tylenol) 650 mg Q6H PRN PO 09/11/17 05:15 09/11/17 09:32 ([place] 5-325 Mg) 1 tab Q4H PRN PO 09/11/17 05:15 (Morphine Inj) 2 mg Q2H PRN IV PUSH 09/11/17 05:15 (Protonix) 40 mg DAILY PO 09/11/17 09:00 09/11/17 08:58 (Zofran Inj) 4 mg Q6H PRN IV PUSH 09/11/17 05:15 (Albuterol Neb) 2.5 mg Q2HR NEB PRN INH 09/11/17 05:15 Miscellaneous Information 1 Q361D XX 09/11/17 05:15 (Chlorhexidine 2% Cloth) 3 pack Taper DAILY@04 TOP 09/12/17 04:00 09/08/18 03:59 (Chlorhexidine 2% Cloth) 3 pack UNSCH PRN TOP 09/11/17 05:15 (Magali-Colace) 1 tab BID PO 09/11/17 09:00 09/11/17 08:58 (Milk Of Magnesia Liq) 30 ml Q12H PRN PO 09/11/17 05:15 (Senokot) 17.2 mg Q12H PRN PO 09/11/17 05:15 (Dulcolax Supp) 10 mg DAILY PRN RECTAL 09/11/17 05:15 (Lactulose Liq) 30 ml DAILY PRN PO 09/11/17 05:15 ([place] 5-325 Mg) 2 tab Q6H PRN PO 09/11/17 05:15 (Morphine Inj) 4 mg Q4H PRN IV PUSH 09/11/17 05:15 (D50w (Vial) Inj) 50 ml UNSCH PRN IV PUSH 09/11/17 05:30 (Glucagon Inj) 1 mg UNSCH PRN OTHER 09/11/17 05:30 (NovoLOG SUPPLEMENTAL SCALE) 1 ACHS SLIDING SCALE SQ 09/11/17 08:00 09/11/17 11:57 (SoluCORTEF INJ) 50 mg Q6HR IV PUSH 09/11/17 12:00 09/11/17 11:58 (Benadryl Inj) 50 mg Q6H IV PUSH 09/11/17 10:00 09/11/17 08:58 Meropenem 1000 mg/ Sodium Chloride 100 ml @ 200 mls/hr Q12H IV 09/11/17 09:00 09/11/17 09:00 Family History Father had asthma and had a pulmonary embolus. Reportedly of kidney failure Social History He previously smoked "socially" for 8 years. Quit smoking 35 years ago He chews tobacco Drink alcohol occasionally No illicit drug use Physical Exam Vital Signs Vital Signs Date Time Temp Pulse Resp B/P (MAP) Pulse Ox O2 Delivery O2 Flow Rate FiO2 09/11/17 11:59 78 94/46 09/11/17 07:00 Room Air 09/11/17 06:10 09/11/17 06:00 97.9 76 27 118/62 (80) 92 09/11/17 06:00 Room Air 09/11/17 05:34 98 09/11/17 03:45 78 16 88/54 (65) 99 Room Air 09/11/17 02:19 76 22 99/51 (67) 98 Room Air 09/11/17 01:43 75 103/54 09/11/17 01:35 74 16 103/54 (70) 97 Room Air 09/11/17 01:13 97.6 82 18 90/62 (71) 97 Physical Exam GENERAL: Patient is an obese, well-developed male, awake and alert, not in respiratory distress. SKIN: Warm and dry. Has erythematous rash in UE, upper chest, back and some in upper thighs. Also has keratotic rash scattered in upper chest No ecchymoses and no evidence of embolic lesions. HEAD: Atraumatic. Normocephalic. No temporal wasting, or tenderness. EYES: [place] conjunctiva. No petechia or hemorrhage. Pupils equal, round and reactive to light. Extraocular movements full and intact. No scleral icterus. No injection or drainage. EARS, NOSE AND THROAT: Nose without bleeding or purulent nasal discharge. No sinus tenderness. Mucous membranes pink and moist. No oral lesions noted. No exudate. No oral thrush. NECK: Trachea midline. Supple and not tender, no meningeal signs. No lymphadenopathy CARDIOVASCULAR: Regular rate and rhythm. No murmurs, rubs or gallops heard RESPIRATORY: Clear to auscultation. Breath sounds equal bilaterally. No rales , wheezing or rhonchi ABDOMEN: Soft, obese, non-tender, nondistended. Bowel sounds present and normoactive. No guarding. No rebound. No organomegaly. BACK: Well healed incision in his lower back, with some erythema, min indurated , no fluctuance, not tended EXTREMITIES: No clubbing, cyanosis, or edema. No joint effusion, has good ROM. No calf tenderness. Well perfused and warm. Notable for the rash. NEUROLOGICAL: Awake and alert. Cranial nerves grossly intact. Motor grossly within normal limits. PSYCHIATRIC: Normal affect, calm and cooperative. LINE: No evidence of infection Laboratory Laboratory Tests Test 09/11/17 03:25 09/11/17 04:45 09/11/17 07:45 09/11/17 09:30 Lactic Acid Level 1.3 White Blood Count 7.5 Red Blood Count 4.09 Hemoglobin 12.2 Hematocrit 35.9 Mean Corpuscular Volume 87.9 Mean Corpuscular Hemoglobin 29.8 Mean Corpuscular Hemoglobin Concent 33.9 Red Cell Distribution Width 14.3 Platelet Count 303 Mean Platelet Volume 7.2 Neutrophils (%) (Auto) 77.4 Lymphocytes (%) (Auto) 11.6 Monocytes (%) (Auto) 6.4 Eosinophils (%) (Auto) 4.4 Basophils (%) (Auto) 0.2 Neutrophils # (Auto) 5.8 Lymphocytes # (Auto) 0.9 Monocytes # (Auto) 0.5 Eosinophils # (Auto) 0.3 Basophils # (Auto) 0.0 CBC Comment DIFF FINAL Differential Comment Blood Urea Nitrogen 22 Creatinine 1.85 Random Glucose 126 Total Protein 7.2 Albumin 2.9 Calcium Level 8.0 Alkaline Phosphatase 90 Aspartate Amino Transf (AST/SGOT) 25 Alanine Aminotransferase (ALT/SGPT) 53 Total Bilirubin 0.7 Sodium Level 137 Potassium Level 3.7 Chloride Level 104 Carbon Dioxide Level 25.8 Anion Gap 7 Estimat Glomerular Filtration Rate 38 Total Creatine Kinase 218 Troponin I LESS THAN 0.02 C-Reactive Protein 9.19 Lipase 139 Random Cortisol 8.4 Nasal Screen MRSA (PCR) MRSA NOT DETECTED Urine Color LIGHT-YELLOW Urine Turbidity CLEAR Urine pH 5.0 Urine Specific [place] 1.009 Urine Protein NEG Urine Glucose (UA) NEG Urine Ketones NEG Urine Occult Blood NEG Urine Nitrite NEG Urine Bilirubin NEG Urine Urobilinogen LESS THAN 2.0 Urine Leukocyte Esterase NEG Urine RBC 0-3 Urine WBC 0-2 Urine Squamous Epithelial Cells 0-5 Urine Bacteria NONE Urine Eosinophils NONE SEEN Test 09/11/17 11:00 Troponin I LESS THAN 0.02 Date/Time Source Procedure Growth Status 09/11/17 05:00 Blood Peripheral Aerobic Blood Culture Pending Received 09/11/17 05:00 Blood Peripheral Anaerobic Blood Culture Pending Received Result Diagram: 09/11/17 0445 09/11/17 0445 Imaging RADIOLOGY STUDIES/FILMS REVIEWED Renal Ultrasound 09/11/17 0000 Signed Impressions: Service Date/Time: Monday, September 11, 2017 07:18 - CONCLUSION: Renal ultrasound within normal limits. Ramu Laguna MD Lumbar Spine MRI 09/11/17 0000 Signed Impressions: Service Date/Time: Monday, September 11, 2017 02:46 - CONCLUSION: There is a fluid filled tract which communicates from the L4-5 disc, through the left bony spinal canal and into the subdermal soft tissues. The various components are measured above. There is enhancement in the wall of the fluid collections in the the subcutaneous and intramuscular components of the tract. Aleksander Adler MD Chest X-Ray 09/11/17 0000 Signed Impressions: Service Date/Time: Monday, September 11, 2017 05:03 - CONCLUSION: Right IJ catheter in good position. No evidence of pneumothorax. Aleksander Adler MD Assessment and Plan Assessment and Plan IMPRESSION Shock on presentation, on pressors, ?sepsis Fluid collection superficial in lumbar spine at surgical site, ?infected fluid Renal insufficiency Lactic acid normal, WBC normal Rash, etiology? - patient has taken Keflex and Bactrim in the past - he received IV Ancef for his surgery last Jul 27 RECOMMENDATION Patient got IV Vanco in [facility] Currently on Merem Follow C/S Check Vanco level today, will redose if needed Pressors for BP support D/W Dr Mcgowan, he will order aspiration of fluid collection in his back Monitor progress I will follow along with you Thank you for this consultation Discussed Condition With D/W Dr Mcgowan D/W Michelle Syed MD Sep 11, 2017 12:37
--- NOTE | 2017-09-11 13:10 | PD.CONS ---
History of Present Illness Service Neurosurgery Consult Requested By Footwear Sales Coordinator Reason for Consult Postoperative lumbar fluid collection Primary Care Physician No Primary Care Physician Diagnoses: History of Present Illness Mr. Jung is a 57-year-old male who underwent a left L4 5 decompressive semi- laminectomy medial facetectomy foraminotomy and discectomy on 07/27/2017. He states that prior to surgery he had some pain in the left proximal lower extremity. He states that he was doing recently well until last week when he started to develop increasing aching in the low back with some pain radiating back down the left lower extremity. He has no complaint of weakness or numbness in the lower extremities and no complaint of bowel or bladder dysfunction. He has not had any fevers or chills. He was seen back in the neurosurgery clinic on 09/09/2017 and was started on Keflex and Bactrim. However last evening he started getting dizzy and sweating with generalized weakness. He reported to [facility] emergency room for evaluation and was noted to be hypotensive with systolic blood pressure in the 60s. He was given vancomycin and Zosyn along with a fluid bolus. He was started on a Levophed IV drip for the hypotension and transferred to [facility] emergency room for further evaluation. Today he states that he feels much better. He still has some aching pain in the left leg. No complaining of significant dizziness, vertigo today. No nausea or vomiting. Review of Systems Constitutional: COMPLAINS OF: Dizziness, Night Sweats, DENIES: Weight loss Eyes: DENIES: Blurred vision, Diplopia Cardiovascular: DENIES: Chest pain, Palpitations Gastrointestinal: DENIES: Abdominal pain Musculoskeletal: COMPLAINS OF: Back pain, DENIES: Joint pain, Neck pain Neurologic: DENIES: Headache, Localized weakness Psychiatric: DENIES: Confusion Past Family Social History Allergies: Coded Allergies: methadone (Verified Allergy, Severe, RESPIRATORY ARREST, 09/11/17) sulfamethoxazole (Verified Allergy, Severe, 09/11/17) tetracycline (Verified Allergy, Severe, Rash, 09/11/17) A CHILD RASH TONGUE SWELLING trimethoprim (Verified Allergy, Severe, 09/11/17) cephalexin (Verified Allergy, Unknown, rash, 09/11/17) Received at same time as bactrim so unclear which abx caused it Past Medical History Diabetes Hypertension Morbid obesity Diabetes Hypertension Morbid obesity GERD Past Surgical History Lumbar laminectomy 07/27/2017 Right rotator cuff repair Reported Medications Reported Meds & Active Scripts Active Cephalexin 500 Mg Cap 500 Mg PO Q8H Bactrim DS (Sulfamethoxazole-Trimethoprim) 800-160 Mg Tab 1 Tab PO BID Reported Metformin (Metformin HCl) 500 Mg Tab Breo Ellipta Inh (Fluticasone/Vilanterol) 200-25 Mcg/Act Inh 1 Puff INH DAILY Use daily at the same time. Hydrochlorothiazide 12.5 Mg Tab 12.5 Mg PO DAILY Gabapentin 300 Mg Cap 300 Mg PO TID Lisinopril 10 Mg Tab 10 Mg PO DAILY Family History His father of kidney failure Social History He stopped smoking cigarettes over 3 years ago. Occasional alcohol use. He chews tobacco Physical Exam Vital Signs Vital Signs Date Time Temp Pulse Resp B/P (MAP) Pulse Ox O2 Delivery O2 Flow Rate FiO2 09/11/17 11:59 78 94/46 09/11/17 07:00 Room Air 09/11/17 06:10 09/11/17 06:00 97.9 76 27 118/62 (80) 92 09/11/17 06:00 Room Air 09/11/17 05:34 98 09/11/17 03:45 78 16 88/54 (65) 99 Room Air 09/11/17 02:19 76 22 99/51 (67) 98 Room Air 09/11/17 01:43 75 103/54 09/11/17 01:35 74 16 103/54 (70) 97 Room Air 09/11/17 01:13 97.6 82 18 90/62 (71) 97 Physical Exam Gen.: Morbidly obese gentleman, no apparent distress Integumentary: Well-healed incision just to the left of midline at the lower lumbar region. To the left of midline there is an area of protuberance at the skin surface coming to a small mildly erythematous lesion on the skin with palpable subcutaneous fluid collection. No active drainage. Neurologic: Awake alert oriented conversant and appropriate Reasonable judgment and insight No anxiety or depression Sensation intact to light touch throughout the lower extremities Strength is normal on major flexion and extension grooves, inversion and eversion of the foot in the right and left lower extremity except for mild weakness left extensor hallucis longus which he states is related to a previous distal left lower extremity injury. Laboratory Laboratory Tests Test 09/11/17 03:25 09/11/17 04:45 09/11/17 07:45 09/11/17 09:30 Lactic Acid Level 1.3 White Blood Count 7.5 Red Blood Count 4.09 Hemoglobin 12.2 Hematocrit 35.9 Mean Corpuscular Volume 87.9 Mean Corpuscular Hemoglobin 29.8 Mean Corpuscular Hemoglobin Concent 33.9 Red Cell Distribution Width 14.3 Platelet Count 303 Mean Platelet Volume 7.2 Neutrophils (%) (Auto) 77.4 Lymphocytes (%) (Auto) 11.6 Monocytes (%) (Auto) 6.4 Eosinophils (%) (Auto) 4.4 Basophils (%) (Auto) 0.2 Neutrophils # (Auto) 5.8 Lymphocytes # (Auto) 0.9 Monocytes # (Auto) 0.5 Eosinophils # (Auto) 0.3 Basophils # (Auto) 0.0 CBC Comment DIFF FINAL Differential Comment Blood Urea Nitrogen 22 Creatinine 1.85 Random Glucose 126 Total Protein 7.2 Albumin 2.9 Calcium Level 8.0 Alkaline Phosphatase 90 Aspartate Amino Transf (AST/SGOT) 25 Alanine Aminotransferase (ALT/SGPT) 53 Total Bilirubin 0.7 Sodium Level 137 Potassium Level 3.7 Chloride Level 104 Carbon Dioxide Level 25.8 Anion Gap 7 Estimat Glomerular Filtration Rate 38 Total Creatine Kinase 218 Troponin I LESS THAN 0.02 C-Reactive Protein 9.19 Lipase 139 Random Cortisol 8.4 Nasal Screen MRSA (PCR) MRSA NOT DETECTED Urine Color LIGHT-YELLOW Urine Turbidity CLEAR Urine pH 5.0 Urine Specific [place] 1.009 Urine Protein NEG Urine Glucose (UA) NEG Urine Ketones NEG Urine Occult Blood NEG Urine Nitrite NEG Urine Bilirubin NEG Urine Urobilinogen LESS THAN 2.0 Urine Leukocyte Esterase NEG Urine RBC 0-3 Urine WBC 0-2 Urine Squamous Epithelial Cells 0-5 Urine Bacteria NONE Urine Eosinophils NONE SEEN Test 09/11/17 11:00 Troponin I LESS THAN 0.02 Date/Time Source Procedure Growth Status 09/11/17 05:00 Blood Peripheral Aerobic Blood Culture Pending Received 09/11/17 05:00 Blood Peripheral Anaerobic Blood Culture Pending Received Result Diagram: 09/11/17 0445 09/11/17 0445 Imaging 09/11/2017 MRI lumbar spine images have been reviewed by the undersigned. Agree with findings as noted below: Renal Ultrasound 09/11/17 0000 Signed Impressions: Service Date/Time: Monday, September 11, 2017 07:18 - CONCLUSION: Renal ultrasound within normal limits. Ramu Laguna MD Lumbar Spine MRI 09/11/17 0000 Signed Impressions: Service Date/Time: Monday, September 11, 2017 02:46 - CONCLUSION: There is a fluid filled tract which communicates from the L4-5 disc, through the left bony spinal canal and into the subdermal soft tissues. The various components are measured above. There is enhancement in the wall of the fluid collections in the the subcutaneous and intramuscular components of the tract. Aleksander Adler MD Chest X-Ray 09/11/17 0000 Signed Impressions: Service Date/Time: Monday, September 11, 2017 05:03 - CONCLUSION: Right IJ catheter in good position. No evidence of pneumothorax. Aleksander Adler MD Assessment and Plan Assessment and Plan Impression: 1. Postoperative lumbar subcutaneous and deep paraspinous fluid collection tracking down to the left L4 5 disc space. Recommendations: Findings were discussed with the patient. Option of observation versus aspiration of the fluid collection to improve wound healing and obtain specimen for culture has been discussed. I have advised it would be prudent to obtain a fluid sample for culture. He does understand that there is a small risk of infection related to the needle aspiration of the fluid collection. He appears to understand the above and wishes to proceed with the lumbar fluid collection aspiration. Discussed with infectious disease. Cooper Mcgowan MD Sep 11, 2017 13:10
[2017-09-11] MEDS ORDERED: VANCOMYCIN INJ 1,000 MG in SODIUM CHLOR 0.9% 250 ML INJ 250 ML IV ONE (15:00)
--- NOTE | 2017-09-11 15:59 | EKG ---
Date Performed: 09/11/2017 Time Performed: 05:49:31 PTAGE: 57 years EKG: Sinus rhythm Compared to prior tracing no significant change NORMAL ECG PREVIOUS TRACING : 11/29/2003 23.37 DOCTOR: Bunny Ingram Interpretating Date/Time 09/11/2017 15:58:33
--- NOTE | 2017-09-11 15:59 | EKG ---
Date Performed: 09/11/2017 Time Performed: 07:32:57 PTAGE: 57 years EKG: Sinus rhythm Compared to prior tracing no significant change NORMAL ECG PREVIOUS TRACING : 11/29/2003 23.37 DOCTOR: Bunny Ingram Interpretating Date/Time 09/11/2017 15:58:49
[2017-09-11] MEDS ORDERED: VANCOMYCIN INJ 2,500 MG in SODIUM CHLORID 0.9% 500 ML INJ 500 ML IV ONE (16:00)
[2017-09-11] MEDS: FAMOTIDINE 20 MG/2 ML VIAL IV PUSH SCH (18:26)
--- NOTE | 2017-09-11 22:11 | PD.OP ---
Operative Report Date of Surgery: Sep 11, 2017 Preoperative Diagnosis: (1) S/P lumbar laminectomy Status post lumbar laminectomy with postoperative fluid collection at the wound site. Postoperative Diagnosis: (1) S/P lumbar laminectomy Status post lumbar laminectomy with postoperative fluid collection at the wound site. 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 The risks of the procedure including risk of infection was discussed. The patient was placed in a semiprone position. The lumbar region was sterilely prepped with first ChloraPrep and then separately with Betadine. Sterile drapes were applied around the procedure site. Appropriate tower procedure was performed with all personnel present and in agreement. The 1% Xylocaine without epinephrine was used for local infiltration of the needle puncture site which was performed approximately 3 cm medial and below the previous incision site in order to avoid direct entry into the most superficial portion of the fluid collection. The 20-gauge spinal needle was advanced into the fluid collection in a single pass and 100 cc of relatively clear colorless fluid was obtained which resulted in significant decrease tension along the wound site. The needle was withdrawn and the area massage to seal off the track. No residual leakage was noted. A sterile dressing was applied. The specimen was sent for routine Gram stain, C&S. The patient tolerated the procedure well with no new symptoms. There was no blood loss Cooper Mcgowan MD Sep 11, 2017 22:11
[2017-09-12] VITALS (9 sets, daily range): BP systolic 100–124; BP diastolic 54–63; PULSE 74–93; RESP 13–25; TEMP 95.5–98.3; O2SAT 94–100
[2017-09-12] MEDS: diphenhydrAMINE HCL 50 MG/ML VIAL IV PUSH SCH ×5 (00:17→17:48)
[2017-09-12] MEDS: HYDROCORTISONE SOD SUCCINATE 100 MG VIAL IV PUSH SCH ×4 (00:17→17:04)
[2017-09-12 00:55] LABS: GROSS BLOOD TUBE #2 0 (0); SUPERNATE COLOR TUBE #2 CLEAR (CLEAR); VOLUME TUBE # 2 7.5 ML
[2017-09-12 00:56] LABS: CSF EOSINOPHILS 1 %; CSF LYMPHOCYTES 6 %; CSF MONOCYTES 5 %; CSF NEUTROPHILS 88 %; GROSS BLOOD TUBE #4 0 (0); SUPERNATE COLOR TUBE #4 CLEAR (CLEAR)
[2017-09-12 01:00] LABS: WBC TUBE #4 201 /MM3 (0-10)
[2017-09-12] MEDS: CHLORHEXIDINE GLUCONATE 2 % 1 PACK (2 CLOTHS) TOP SCH (04:00)
[2017-09-12] MEDS: SODIUM CHLOR 0.9% 1000 ML INJ 1,000 ML IV SCH ×3 (05:08→20:50)
[2017-09-12 05:49] LABS: AUTOMATED NEUTROPHIL # 11.9 TH/MM3 (1.8-7.7); BASOPHIL % 0.1 % (0.0-2.0); HEMATOCRIT 34.8 % (39.0-51.0); HEMO FLAGS DIFF FINAL; LYMPH % 5.2 % (9.0-44.0); LYMPHOCYTE # 0.7 TH/MM3 (1.0-4.8); MEAN CELL VOLUME 89.3 FL (80.0-100.0); MEAN CORPUSCULAR HEMOGLOBIN 29.2 PG (27.0-34.0); MEAN CORPUSCULAR HGB CONC 32.8 % (32.0-36.0); NEUT % 91.7 % (16.0-70.0); PLATELET COUNT 287 TH/MM3 (150-450); WHITE BLOOD COUNT 12.9 TH/MM3 (4.0-11.0)
[2017-09-12 05:54] LABS: ANION GAP 6 MEQ/L (5-15); AST (GOT) 20 U/L (15-37); BICARBONATE 26.8 MEQ/L (21.0-32.0); BLOOD UREA NITROGEN 16 MG/DL (7-18); CHLORIDE 107 MEQ/L (98-107); GLOMERULAR FILTRATION RATE 82 ML/MIN (>89); MAGNESIUM 2.2 MG/DL (1.5-2.5); POTASSIUM 4.4 MEQ/L (3.5-5.1); SODIUM (NA) 140 MEQ/L (136-145)
[2017-09-12 05:57] LABS: ALKALINE PHOSPHATASE 82 U/L (45-117); ALT (GPT) 51 U/L (12-78); TOTAL BILIRUBIN ADULT 0.2 MG/DL (0.2-1.0)
[2017-09-12] MEDS: FAMOTIDINE 20 MG/2 ML VIAL IV PUSH SCH ×2 (06:13→17:05)
[2017-09-12] MEDS: INSULIN ASPART SUPPLEMENTAL SCALE SQ SCH ×4 (07:48→21:00)
[2017-09-12] MEDS: DOCUSATE SODIUM 50 MG/SENNA 8.6 MG TAB PO SCH ×2 (07:48→20:55)
[2017-09-12] MEDS: PANTOPRAZOLE SOD 40 MG DELAYED RELEASE TAB PO SCH (07:49)
[2017-09-12] MEDS: FLUTICASONE 200 MCG/VILANTEROL 25 MCG INHALER INH SCH (08:46)
[2017-09-12] MEDS: SODIUM CHLORIDE 0.9% FLUSH 10 ML FLUSH IV FLUSH SCH ×2 (08:47→20:50)
[2017-09-12] MEDS: MEROPENEM INJ 1,000 MG in SODIUM CHLORIDE 0.9% INJ 100 ML IV SCH ×2 (08:47→20:49)
[2017-09-12] MEDS: GABAPENTIN 100 MG CAP PO SCH ×3 (08:47→17:04)
--- NOTE | 2017-09-12 09:46 | HHI.NSPN ---
History Chief Complaint: Back tightness, buttock/thigh spasms. Interval History 09/11: Mr. Jung is a 57-year-old male who underwent a left L4 5 decompressive semi-laminectomy medial facetectomy foraminotomy and discectomy on 07/27/2017. He states that prior to surgery he had some pain in the left proximal lower extremity. He states that he was doing recently well until last week when he started to develop increasing aching in the low back with some pain radiating back down the left lower extremity. He has no complaint of weakness or numbness in the lower extremities and no complaint of bowel or bladder dysfunction. He has not had any fevers or chills. He was seen back in the neurosurgery clinic on 09/09/2017 and was started on Keflex and Bactrim. However last evening he started getting dizzy and sweating with generalized weakness. He reported to [facility] emergency room for evaluation and was noted to be hypotensive with systolic blood pressure in the 60s. He was given vancomycin and Zosyn along with a fluid bolus. He was started on a Levophed IV drip for the hypotension and transferred to [facility] emergency room for further evaluation. Today he states that he feels much better. He still has some aching pain in the left leg. No complaining of significant dizziness, vertigo today. No nausea or vomiting. 09/12: This morning the patient is seen up and about in the room. His gait is steady. He is disconnected from the monitor. He says his back feels tight and he has some spasms to the buttocks/back of the thighs. He does say he has numbness going down both lower extremities which he relates to circulation. Nursing reports that the patient has been haemodynamically stable and the norepinephrine drip was discontinued yesterday. System Review Comments MUSCULOSKELETAL: Back feels tight. Spasms to the buttocks/posterior thighs. NEUROLOGICAL: Numbness to the legs. Exam Results 09/10/17 09/10/17 09/11/17 09/11/17 09/12/17 09/12/17 06:00 18:00 06:00 18:00 06:00 18:00 Intake Total 229 ml 2200 ml 2600 ml Output Total 425 ml 4000 ml 860 ml Balance -196 ml -1800 ml 1740 ml Intake Oral 720 ml IV Total 229 ml 1480 ml 2600 ml Output Urine Total 425 ml 4000 ml 860 ml # Voids 1 # Bowel Movements 1 1 Vital Signs Date Time Temp Pulse Resp B/P (MAP) Pulse Ox O2 Delivery O2 Flow Rate FiO2 09/12/17 08:00 98.3 92 25 114/56 (75) 96 09/12/17 07:00 100 Room Air 09/12/17 06:00 74 09/12/17 04:00 98.1 80 18 112/57 (75) 95 09/12/17 04:00 80 09/12/17 02:00 78 09/12/17 00:00 97.9 84 13 106/57 (73) 95 09/12/17 00:00 84 09/11/17 22:00 88 09/11/17 20:00 84 09/11/17 20:00 98.0 84 30 112/56 (74) 96 09/11/17 19:00 95 Room Air 09/11/17 16:00 97.8 92 22 101/56 (71) 09/11/17 12:00 99.2 80 24 115/63 (80) 96 09/11/17 11:59 78 94/46 09/11/17 08:00 99.5 82 14 112/55 (74) 95 09/11/17 07:00 Room Air 09/11/17 06:10 09/11/17 06:00 97.9 76 27 118/62 (80) 92 09/11/17 06:00 Room Air 09/11/17 05:34 98 09/11/17 03:45 78 16 88/54 (65) 99 Room Air 09/11/17 02:19 76 22 99/51 (67) 98 Room Air 09/11/17 01:43 75 103/54 09/11/17 01:35 74 16 103/54 (70) 97 Room Air 09/11/17 01:13 97.6 82 18 90/62 (71) 97 Physical Examination GENERAL: Morbidly obese male up and about in the room. Affect is normal and he is not in any apparent distress. SKIN: Well-healed incision left of midline at the lower lumbar region w/erythema , slightly fluctuant, no evident drainage from needle drainage insertion site. MUSCULOSKELETAL: HECTOR w/o difficulty, NTTP, no evident deformity or clubbing. Well-healed left lateral lumbar surgical incision NTTP. NEUROLOGIC: AAOx3. Speech clear & appropriate. Follows simple commands w/o difficulty. Gait steady. Sensation is decreased to light touch to the anterior thighs bilaterally o/w intact to the lower extremities. Motor strength is 5/5 to all major flexion & extension muscle groups to the lower extremities except for the left extensor hallucis longus which is 4 to 4+/ 5. Lab, Micro, Other Results Recent Impressions Renal Ultrasound 09/11/17 0000 Signed Impressions: Service Date/Time: Monday, September 11, 2017 07:18 - CONCLUSION: Renal ultrasound within normal limits. Ramu Laguna MD Lumbar Spine MRI 09/11/17 0000 Signed Impressions: Service Date/Time: Monday, September 11, 2017 02:46 - CONCLUSION: There is a fluid filled tract which communicates from the L4-5 disc, through the left bony spinal canal and into the subdermal soft tissues. The various components are measured above. There is enhancement in the wall of the fluid collections in the the subcutaneous and intramuscular components of the tract. Aleksander Adler MD Chest X-Ray 09/11/17 0000 Signed Impressions: Service Date/Time: Monday, September 11, 2017 05:03 - CONCLUSION: Right IJ catheter in good position. No evidence of pneumothorax. Aleksander Adler MD Laboratory Tests Test 09/11/17 03:25 09/11/17 04:45 09/11/17 07:45 09/11/17 09:30 Lactic Acid Level 1.3 mmol/L White Blood Count 7.5 TH/MM3 Red Blood Count 4.09 MIL/MM3 Hemoglobin 12.2 GM/DL Hematocrit 35.9 % Mean Corpuscular Volume 87.9 FL Mean Corpuscular Hemoglobin 29.8 PG Mean Corpuscular Hemoglobin Concent 33.9 % Red Cell Distribution Width 14.3 % Platelet Count 303 TH/MM3 Mean Platelet Volume 7.2 FL Neutrophils (%) (Auto) 77.4 % Lymphocytes (%) (Auto) 11.6 % Monocytes (%) (Auto) 6.4 % Eosinophils (%) (Auto) 4.4 % Basophils (%) (Auto) 0.2 % Neutrophils # (Auto) 5.8 TH/MM3 Lymphocytes # (Auto) 0.9 TH/MM3 Monocytes # (Auto) 0.5 TH/MM3 Eosinophils # (Auto) 0.3 TH/MM3 Basophils # (Auto) 0.0 TH/MM3 CBC Comment DIFF FINAL Differential Comment Blood Urea Nitrogen 22 MG/DL Creatinine 1.85 MG/DL Random Glucose 126 MG/DL Total Protein 7.2 GM/DL Albumin 2.9 GM/DL Calcium Level 8.0 MG/DL Alkaline Phosphatase 90 U/L Aspartate Amino Transf (AST/SGOT) 25 U/L Alanine Aminotransferase (ALT/SGPT) 53 U/L Total Bilirubin 0.7 MG/DL Sodium Level 137 MEQ/L Potassium Level 3.7 MEQ/L Chloride Level 104 MEQ/L Carbon Dioxide Level 25.8 MEQ/L Anion Gap 7 MEQ/L Estimat Glomerular Filtration Rate 38 ML/MIN Total Creatine Kinase 218 U/L Troponin I LESS THAN 0.02 NG/ML C-Reactive Protein 9.19 MG/DL Lipase 139 U/L Random Cortisol 8.4 MCG/DL Nasal Screen MRSA (PCR) MRSA NOT DETECTED Urine Color LIGHT-YELLOW Urine Turbidity CLEAR Urine pH 5.0 Urine Specific [place] 1.009 Urine Protein NEG mg/dL Urine Glucose (UA) NEG mg/dL Urine Ketones NEG mg/dL Urine Occult Blood NEG Urine Nitrite NEG Urine Bilirubin NEG Urine Urobilinogen LESS THAN 2.0 MG/DL Urine Leukocyte Esterase NEG Urine RBC 0-3 /hpf Urine WBC 0-2 /hpf Urine Squamous Epithelial Cells 0-5 /hpf Urine Bacteria NONE /hpf Urine Eosinophils NONE SEEN /HPF Test 09/11/17 11:00 09/11/17 11:47 09/11/17 18:15 09/11/17 21:40 Troponin I LESS THAN 0.02 NG/ML LESS THAN 0.02 NG/ML Random Vancomycin Level 10.4 COMMENT CSF Volume (Tube 2) 7.5 ML CSF Supernatant Color (tube 2) CLEAR CSF Gross Blood (Tube 2) 0 CSF Volume (Tube 4) 6.0 ML CSF Supernatant Color (tube 4) CLEAR CSF Gross Blood (Tube 4) 0 CSF WBC (Tube 4) 201 /MM3 CSF RBC (Tube 4) 19 /MM3 CSF Neutrophils 88 % CSF Lymphocytes 6 % CSF Monocytes 5 % CSF Eosinophils 1 % CSF Glucose 131 MG/DL Test 09/12/17 05:00 White Blood Count 12.9 TH/MM3 Red Blood Count 3.90 MIL/MM3 Hemoglobin 11.4 GM/DL Hematocrit 34.8 % Mean Corpuscular Volume 89.3 FL Mean Corpuscular Hemoglobin 29.2 PG Mean Corpuscular Hemoglobin Concent 32.8 % Red Cell Distribution Width 14.0 % Platelet Count 287 TH/MM3 Mean Platelet Volume 7.6 FL Neutrophils (%) (Auto) 91.7 % Lymphocytes (%) (Auto) 5.2 % Monocytes (%) (Auto) 3.0 % Eosinophils (%) (Auto) 0.0 % Basophils (%) (Auto) 0.1 % Neutrophils # (Auto) 11.9 TH/MM3 Lymphocytes # (Auto) 0.7 TH/MM3 Monocytes # (Auto) 0.4 TH/MM3 Eosinophils # (Auto) 0.0 TH/MM3 Basophils # (Auto) 0.0 TH/MM3 CBC Comment DIFF FINAL Differential Comment Blood Urea Nitrogen 16 MG/DL Creatinine 0.94 MG/DL Random Glucose 163 MG/DL Total Protein 6.7 GM/DL Albumin 2.6 GM/DL Calcium Level 7.9 MG/DL Phosphorus Level 1.2 MG/DL Magnesium Level 2.2 MG/DL Alkaline Phosphatase 82 U/L Aspartate Amino Transf (AST/SGOT) 20 U/L Alanine Aminotransferase (ALT/SGPT) 51 U/L Total Bilirubin 0.2 MG/DL Sodium Level 140 MEQ/L Potassium Level 4.4 MEQ/L Chloride Level 107 MEQ/L Carbon Dioxide Level 26.8 MEQ/L Anion Gap 6 MEQ/L Estimat Glomerular Filtration Rate 82 ML/MIN Random Vancomycin Level 13.8 COMMENT Medical Decision Making Impression and Plan Impression: 1. Postoperative lumbar subcutaneous and deep paraspinous fluid collection tracking down to the left L4 5 disc space. Patient is doing well today. He is haemodynamically stable. Labs reviewed for today. Leukocytosis w/neutrophilia noted. Fluid culture Gram stain w/many WBCs noted, no organisms seen, culture pending. Blood cultures pending. POD #1 () s/p: Needle aspiration of lumbar postoperative soft tissue fluid collection Postoperative Diagnosis: (1) S/P lumbar laminectomy Status post lumbar laminectomy with postoperative fluid collection at the wound site. 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 Primary management per Paper Sorter/Hospitalist. Antibiotics per Infectious Disease. Patient is able to transfer to a regular med/surg floor from NSGY's perspective. ADDENDUM at 1121: Discussed patient with Dr Mcgowan. Since Gram stain is negative for any organisms the patient is okay for discharge from NSGY's perspective with outpatient follow up with Dr Parson. David Kothari Sep 12, 2017 09:46
--- NOTE | 2017-09-12 14:51 | HHI.CCPN ---
Subjective Remarks/Hospital Course Hospital Course: 57 yo M with PMH of HTN, diabetes, obesity, and chronic LBP who underwent L4-L5 decompressive left hemilaminectomy, mesial facetectomy, foraminotomy with microsurgical resection of the disc on 07/27/[address] Parson. He was seen by Dr. Parson in clinic on 09/09 due to pain in his left back. He was afebrile at that time but reportedly had warmth on his back and was started on Bactrim and Keflex which he took. At around 4 pm on 09/10 he developed "cold sweats", dizziness, and worsening back pain to the point that he said he could barely make it to the bathroom.. He presented to [facility]. There he had temp of 100.0. CT scan demonstrated 8.6 x 7 cm fluid collection in the superficial fascia. It was felt to represent seroma though hematoma or abscess could not be excluded. He had a normal white count of 10. He was hypotensive with blood pressure in the 60s. He was given 1 L NS bolus, epinephrine 0.3 mg subcut, benadryl 25 mg po, epi 1 mg IV, Vancomycin 2 gram, Zosyn 4.5 gram, Morphine 2mg IV and Zofran 4 mg IV at outside hospital. R IJ CVL was placed and he was started on levophed which is running at 5 g per KG per minute. [place] [facility] [place]. MRI has been ordered. He currently complains of low back pain and thirst. He has a diffuse blanching erythematous rash over his entire thorax anteriorly and posteriorly and all extremities. He states the rash was present upon arrival to the outside hospital and it is not pruritic. He does have some palmar pruritus without palmar rash. He denies chest pain, shortness of breath, wheezing. He states he has been on burst steroids in the past up to 3 days for "his breathing" but denies any prolonged steroid use. It does not appear that he receives steroids at the outside hospital. Subjective: 09/12: clinically improving. off vasopressors, on room air. wbc downtrending. patient states he wants to leave ICU. nsgy involved, as well as ID. Objective Vital Signs Date Time Temp Pulse Resp B/P (MAP) Pulse Ox O2 Delivery O2 Flow Rate FiO2 11/19/17 13:45 Room Air 09/12/17 12:00 98.1 80 18 124/62 (82) 100 Intake and Output 09/12/17 09/12/17 09/13/17 08:00 16:00 00:00 Intake Total 1000 ml Output Total 860 ml Balance 140 ml Result Diagram: 09/12/17 0500 09/12/17 0500 Objective Remarks GENERAL: Well-nourished, well-developed, pleasant, obese male who is sitting in chair. SKIN: Warm and dry. no rash evident on today's examination. HEAD: Atraumatic. Normocephalic. EYES: Pupils equal and round. No scleral icterus. No injection or drainage. ENT: No nasal bleeding or discharge. Mucous membranes pink and moist. NECK: Trachea midline. No JVD. right IJ tlc in place, site c/d/i. CARDIOVASCULAR: Regular rate and rhythm, sinus rhythm on the monitor RESPIRATORY: unlabored. equal chest rise. On room air with sats 99%. GASTROINTESTINAL: Abdomen soft, non-tender, nondistended. MUSCULOSKELETAL: Extremities without clubbing, cyanosis, or edema. No obvious deformities. NEUROLOGICAL: Awake and alert, oriented 3. No obvious cranial nerve deficits. Motor grossly within normal limits. A/P Assessment and Plan Assessment: 57yM s/p recent lumbar laminectomy now representing with septic shock and new lumbar fluid collection. clinically improving. continue iv abx, f/ u cultures. appreciate ID and Nsgy input. stable for transfer out of ICU. consult hospitalist service to assume care. NEURO: Fluid collection ?abscess following L4/L5 decompressive laminectomy 07/27/17 Peripheral neuropathy Neurosurgery consulted for recommendations. Patient known to Dr. Parson. gabapentin Lortab as needed for pain. Morphine as needed for breakthrough pain neuro exam at baseline. RESP: Asthma On room air. Incentive spirometry every hour awake. Albuterol every 2 hours as needed. Continue Breo daily CV: Septic Shock - resolved Lactic acidemia - resolved. History of essential hypertension s/p levophed. off vasopressors. d/c cvl. Lactic acid at outside hospitals 3.1, cleared. trops negative. Hold home lisinopril 10 daily due to hypotension and acute kidney injury. Hold HCTZ 12.5 mill grams by mouth daily. GI: GERD regular diet as tolerated. Protonix 40 mg by mouth daily FEN/RENAL: Acute kidney injury - resolved. Creatinine at outside hospital was 2.15. Baseline creatinine 0.9. Received IV contrast at outside hospital 09/11, Cr today normalizing. d/c hummel. SL IVF. ID: Drug reaction Fluid collection ?abscess following L4/L5 decompressive laminectomy 07/27/17 Appears there is drug reaction, presumably to his outpatient bactrim or keflex as patient says rash was present prior to presentation at outside hospital. Solumedrol 40 mg IV every 6 hours, Benadryl 50 IV every 6 hours, famotidine. Will hold pcn/cephalopsporin for now. Meropenem 1 g IV every 8 hours. Continue vancomycin with pharmacy consult for dosing. Reportedly blood cultures were sent at outside hospital. We'll need to call to follow-up results. Additional blood cultures were sent him [facility] ED. f/u all cultures. ID involved. HEME: Monitor CBC ENDO: Diabetes mellitus Monitor bedside glucose closely particularly while on steroids. Initiate low- dose insulin sliding scale as indicated Hold metformin 500 daily PROPH: SCDs for DVT prophylaxis. Pharmacologic DVT prophylaxis when appropriate from neurosurgical standpoint. Protonix 40 mg by mouth daily for stress ulcer prophylaxis and history of GERD ACCESS: Right IJ central venous line placed at [facility] 09/11/17 : will d/c today. dispo: transfer to floor. Laz Hamilton MD Sep 12, 2017 14:50
[2017-09-13] MEDS: HYDROCORTISONE SOD SUCCINATE 100 MG VIAL IV PUSH SCH ×3 (00:16→11:56)
[2017-09-13] MEDS: diphenhydrAMINE HCL 50 MG/ML VIAL IV PUSH SCH ×5 (00:20→23:36)
[2017-09-13 03:45] VITALS: BP 99/58; PULSE 64; RESP 19; TEMP 96.7; O2SAT 99
[2017-09-13] MEDS: CHLORHEXIDINE GLUCONATE 2 % 1 PACK (2 CLOTHS) TOP SCH (04:05)
[2017-09-13] MEDS: FAMOTIDINE 20 MG/2 ML VIAL IV PUSH SCH ×2 (05:21→17:18)
[2017-09-13] MEDS: SODIUM CHLOR 0.9% 1000 ML INJ 1,000 ML IV SCH ×3 (05:21→23:35)
[2017-09-13 07:49] VITALS: BP 144/73; PULSE 66; RESP 18; TEMP 95.8; O2SAT 98
[2017-09-13] MEDS: INSULIN ASPART SUPPLEMENTAL SCALE SQ SCH ×4 (08:00→21:00)
[2017-09-13] MEDS: GABAPENTIN 100 MG CAP PO SCH ×3 (08:07→17:18)
[2017-09-13] MEDS: FLUTICASONE 200 MCG/VILANTEROL 25 MCG INHALER INH SCH (08:07)
[2017-09-13] MEDS: MEROPENEM INJ 1,000 MG in SODIUM CHLORIDE 0.9% INJ 100 ML IV SCH (08:08)
[2017-09-13] MEDS: ACETAMINOPHEN/HYDROcodone 325 MG/5 MG TAB PO PRN (08:08)
[2017-09-13] MEDS: SODIUM CHLORIDE 0.9% FLUSH 10 ML FLUSH IV FLUSH SCH ×2 (08:08→23:35)
[2017-09-13] MEDS: PANTOPRAZOLE SOD 40 MG DELAYED RELEASE TAB PO SCH (08:14)
[2017-09-13] MEDS: DOCUSATE SODIUM 50 MG/SENNA 8.6 MG TAB PO SCH ×3 (08:14→23:35)
--- NOTE | 2017-09-13 10:11 | HHI.NSPN ---
(Chen Peck) Note Status Status: Progress Note (Chen Peck) Interval History Interval History Mr. Jung is a 57-year-old male who underwent a left L4 5 decompressive semi- laminectomy medial facetectomy foraminotomy and discectomy on 07/27/2017. He states that prior to surgery he had some pain in the left proximal lower extremity. He states that he was doing recently well until last week when he started to develop increasing aching in the low back with some pain radiating back down the left lower extremity. He has no complaint of weakness or numbness in the lower extremities and no complaint of bowel or bladder dysfunction. He has not had any fevers or chills. He was seen back in the neurosurgery clinic on 09/09/2017 and was started on Keflex and Bactrim. However last evening he started getting dizzy and sweating with generalized weakness. He reported to [facility] emergency room for evaluation and was noted to be hypotensive with systolic blood pressure in the 60s. He was given vancomycin and Zosyn along with a fluid bolus. He was started on a Levophed IV drip for the hypotension and transferred to [facility] emergency room for further evaluation. Today he states that he feels much better. He still has some aching pain in the left leg. No complaining of significant dizziness, vertigo today. No nausea or vomiting. 09/12: This morning the patient is seen up and about in the room. His gait is steady. He is disconnected from the monitor. He says his back feels tight and he has some spasms to the buttocks/back of the thighs. He does say he has numbness going down both lower extremities which he relates to circulation. Nursing reports that the patient has been haemodynamically stable and the norepinephrine drip was discontinued yesterday. 09/13: mild pulsating pain over the wound. denies fevers or chills. feeling much better today. hypotension improved. (Chen Peck) Labs, Micro, & Vital Signs Results Date Time Temp Pulse Resp B/P (MAP) Pulse Ox O2 Delivery O2 Flow Rate FiO2 09/13/17 07:49 95.8 66 18 144/73 (96) 98 09/13/17 03:45 96.7 64 19 99/58 (72) 99 09/12/17 23:31 96.7 93 19 100/54 (69) 95 09/12/17 19:37 97.1 91 19 104/63 (77) 94 09/12/17 16:00 95.5 84 18 122/60 (80) 95 09/12/17 13:45 Room Air 09/12/17 12:00 98.1 80 18 124/62 (82) 100 Constitutional Vital Signs Date Time Temp Pulse Resp B/P (MAP) Pulse Ox O2 Delivery O2 Flow Rate FiO2 09/13/17 07:49 95.8 66 18 144/73 (96) 98 09/13/17 03:45 96.7 64 19 99/58 (72) 99 09/12/17 23:31 96.7 93 19 100/54 (69) 95 09/12/17 19:37 97.1 91 19 104/63 (77) 94 09/12/17 16:00 95.5 84 18 122/60 (80) 95 09/12/17 13:45 Room Air 09/12/17 12:00 98.1 80 18 124/62 (82) 100 (Chen Peck) Physical Exam Alert and oriented x 3. Speech is fluent. Resting comfortably in bed. Lumbar incision healed with mild fluctuation without redness, warmth, drainage. Motor:5/5 to all major flexion & extension muscle groups to the lower extremities except for the left extensor hallucis longus which is 4 to 4+/5 Sensory: decreased to light touch to the anterior thighs bilaterally o/w intact to the lower extremities. (Chen Peck) Medications Current Medications Current Medications Medications (Trade) Dose Ordered Sig/Cherry Route PRN Reason Start Time Stop Time Status Last Admin Dose Admin Norepinephrine Bitartrate 250 ml @ 7.5 mls/hr TITRATE PRN IV Blood pressure management 09/11/17 01:45 09/11/17 11:59 Terbutaline Sulfate (Brethine Inj) 1 mg UNSCH PRN SQ For Extravasation 09/11/17 01:45 Pharmacy Profile Note 0 ml @ 0 mls/hr UNSCH OTHER 09/11/17 05:00 Fluticasone/ Vilanterol (Breo Ellipta 200-25 Inh) 1 puff DAILY INH 09/11/17 09:00 09/13/17 08:07 Gabapentin (Neurontin) 100 mg TID PO 09/11/17 09:00 09/13/17 08:07 Sodium Chloride 1,000 ml @ 125 mls/hr Q8H IV 09/11/17 05:08 09/13/17 05:21 Sodium Chloride (NS Flush) 2 ml UNSCH PRN IV FLUSH FLUSH AFTER USING IV ACCESS 09/11/17 05:15 09/13/17 00:17 Sodium Chloride (NS Flush) 2 ml BID IV FLUSH 09/11/17 09:00 09/12/17 20:50 Acetaminophen (Tylenol) 650 mg Q6H PRN PO FEVER >101F 09/11/17 05:15 09/11/17 09:32 Acetaminophen/ Hydrocodone Bitart (Disputanta 5-325 Mg) 1 tab Q4H PRN PO PAIN SCALE 1 TO 5 09/11/17 05:15 Morphine Sulfate (Morphine Inj) 2 mg Q2H PRN IV PUSH BREAKHTHROUGH PAIN 1-5 09/11/17 05:15 Pantoprazole Sodium (Protonix) 40 mg DAILY PO 09/11/17 09:00 09/11/17 08:58 Ondansetron HCl (Zofran Inj) 4 mg Q6H PRN IV PUSH NAUSEA OR VOMITING 09/11/17 05:15 Albuterol Sulfate (Albuterol Neb) 2.5 mg Q2HR NEB PRN INH SOB/WHEEZING 09/11/17 05:15 Miscellaneous Information 1 Q361D XX 09/11/17 05:15 Chlorhexidine Gluconate (Chlorhexidine 2% Cloth) 3 pack Taper DAILY@04 TOP 09/12/17 04:00 09/08/18 03:59 Chlorhexidine Gluconate (Chlorhexidine 2% Cloth) 3 pack UNSCH PRN TOP HYGIENIC CARE 09/11/17 05:15 Senna/Docusate Sodium (Magali-Colace) 1 tab BID PO 09/11/17 09:00 09/11/17 21:10 Magnesium Hydroxide (Milk Of Magnesia Liq) 30 ml Q12H PRN PO Mild constipation 09/11/17 05:15 Sennosides (Senokot) 17.2 mg Q12H PRN PO Moderate constipation 09/11/17 05:15 Bisacodyl (Dulcolax Supp) 10 mg DAILY PRN RECTAL SEVERE CONSITIPATION 09/11/17 05:15 Lactulose (Lactulose Liq) 30 ml DAILY PRN PO SEVERE CONSITIPATION 09/11/17 05:15 Acetaminophen/ Hydrocodone Bitart (Disputanta 5-325 Mg) 2 tab Q6H PRN PO PAIN 6-10 09/11/17 05:15 09/13/17 08:08 Morphine Sulfate (Morphine Inj) 4 mg Q4H PRN IV PUSH BREAKTHROUGH PAIN 6-09/11/17 05:15 Dextrose (D50w (Vial) Inj) 50 ml UNSCH PRN IV PUSH HYPOGLYCEMIA-SEE COMMENTS 09/11/17 05:30 Glucagon (Glucagon Inj) 1 mg UNSCH PRN OTHER HYPOGLYCEMIA-SEE COMMENTS 09/11/17 05:30 Insulin Aspart (NovoLOG SUPPLEMENTAL SCALE) 1 ACHS SLIDING SCALE SQ 09/11/17 08:00 09/12/17 17:00 Hydrocortisone Sodium Succinate (SoluCORTEF INJ) 50 mg Q6HR IV PUSH 09/11/17 12:00 09/13/17 05:21 Meropenem 1000 mg/ Sodium Chloride 100 ml @ 200 mls/hr Q12H IV 09/11/17 09:00 09/13/17 08:08 Famotidine (Pepcid Inj) 10 mg Q12H IV PUSH 09/11/17 18:00 09/13/17 05:21 Diphenhydramine HCl (Benadryl Inj) 50 mg Q6H IV PUSH 09/12/17 00:00 09/12/17 00:17 Vancomycin HCl 2500 mg/Sodium Chloride 525 ml @ 257.5 mls/ hr Q12H IV 09/13/17 11:00 Miscellaneous Information SPECIFIC LAB TO BE CHU... ONCE ONCE .XX 09/14/17 10:45 09/14/17 10:46 (Chen Peck) Medical Decision Making MDM Remarks 57 y/o male 1. probable pseudomeningocele at L4-5, so far needle aspiration of fluid collection negative for infection 2. Hypotension, resolved. blood cultures also so far negative (Chen Peck) Plan Plan Remarks cont antibiotic mgt - ID following, f/u final cultures cont supportive care (Chen Peck) Attending Statement The exam, history, and the medical decision-making described in the above note were completed with the assistance of the mid-level provider. I reviewed and agree with the findings presented. I attest that I had a [id number] encounter with the patient on the same day, and personally performed and documented my assessment and findings in the medical record. (Ozzie Parson MD) Chen Peck Sep 13, 2017 10:11 Ozzie Parson MD Sep 14, 2017 20:20
--- NOTE | 2017-09-13 11:40 | HHI.PR ---
Subjective Remarks Pt overall is feeling better. He reports some continued back pain. He is ambulating better His BP has been fluctuating up and down today Denies any dizziness, lightheadedness, palpitations, chest pain or SOB Objective Vitals Vital Signs Date Time Temp Pulse Resp B/P (MAP) Pulse Ox O2 Delivery O2 Flow Rate FiO2 09/13/17 07:49 95.8 66 18 144/73 (96) 98 09/13/17 03:45 96.7 64 19 99/58 (72) 99 09/12/17 23:31 96.7 93 19 100/54 (69) 95 09/12/17 19:37 97.1 91 19 104/63 (77) 94 09/12/17 16:00 95.5 84 18 122/60 (80) 95 09/12/17 13:45 Room Air 09/12/17 12:00 98.1 80 18 124/62 (82) 100 Result Diagram: 09/12/17 0500 09/12/17 0500 Other Results Laboratory Tests Test 09/11/17 11:47 09/11/17 18:15 09/11/17 21:40 09/12/17 05:00 Random Vancomycin Level 10.4 COMMENT 13.8 COMMENT Troponin I LESS THAN 0.02 NG/ML CSF Volume (Tube 2) 7.5 ML CSF Supernatant Color (tube 2) CLEAR CSF Gross Blood (Tube 2) 0 CSF Volume (Tube 4) 6.0 ML CSF Supernatant Color (tube 4) CLEAR CSF Gross Blood (Tube 4) 0 CSF WBC (Tube 4) 201 /MM3 CSF RBC (Tube 4) 19 /MM3 CSF Neutrophils 88 % CSF Lymphocytes 6 % CSF Monocytes 5 % CSF Eosinophils 1 % CSF Glucose 131 MG/DL White Blood Count 12.9 TH/MM3 Red Blood Count 3.90 MIL/MM3 Hemoglobin 11.4 GM/DL Hematocrit 34.8 % Mean Corpuscular Volume 89.3 FL Mean Corpuscular Hemoglobin 29.2 PG Mean Corpuscular Hemoglobin Concent 32.8 % Red Cell Distribution Width 14.0 % Platelet Count 287 TH/MM3 Mean Platelet Volume 7.6 FL Neutrophils (%) (Auto) 91.7 % Lymphocytes (%) (Auto) 5.2 % Monocytes (%) (Auto) 3.0 % Eosinophils (%) (Auto) 0.0 % Basophils (%) (Auto) 0.1 % Neutrophils # (Auto) 11.9 TH/MM3 Lymphocytes # (Auto) 0.7 TH/MM3 Monocytes # (Auto) 0.4 TH/MM3 Eosinophils # (Auto) 0.0 TH/MM3 Basophils # (Auto) 0.0 TH/MM3 CBC Comment DIFF FINAL Differential Comment Blood Urea Nitrogen 16 MG/DL Creatinine 0.94 MG/DL Random Glucose 163 MG/DL Total Protein 6.7 GM/DL Albumin 2.6 GM/DL Calcium Level 7.9 MG/DL Phosphorus Level 1.2 MG/DL Magnesium Level 2.2 MG/DL Alkaline Phosphatase 82 U/L Aspartate Amino Transf (AST/SGOT) 20 U/L Alanine Aminotransferase (ALT/SGPT) 51 U/L Total Bilirubin 0.2 MG/DL Sodium Level 140 MEQ/L Potassium Level 4.4 MEQ/L Chloride Level 107 MEQ/L Carbon Dioxide Level 26.8 MEQ/L Anion Gap 6 MEQ/L Estimat Glomerular Filtration Rate 82 ML/MIN Test 09/13/17 05:04 Random Vancomycin Level 3.4 COMMENT Imaging Last Impressions Renal Ultrasound 09/11/17 0000 Signed Impressions: Service Date/Time: Monday, September 11, 2017 07:18 - CONCLUSION: Renal ultrasound within normal limits. Ramu Laguna MD Lumbar Spine MRI 09/11/17 0000 Signed Impressions: Service Date/Time: Monday, September 11, 2017 02:46 - CONCLUSION: There is a fluid filled tract which communicates from the L4-5 disc, through the left bony spinal canal and into the subdermal soft tissues. The various components are measured above. There is enhancement in the wall of the fluid collections in the the subcutaneous and intramuscular components of the tract. Aleksander Adler MD Chest X-Ray 09/11/17 0000 Signed Impressions: Service Date/Time: Monday, September 11, 2017 05:03 - CONCLUSION: Right IJ catheter in good position. No evidence of pneumothorax. Aleksander Adler MD Objective Remarks General: NAD, AAOx3 Chest: CTA Cardiac: Regular Abd: +BS, soft ND/NT Ext: No edema A/P Problem List: (1) Post-operative complication ICD Codes: T81.9XXA - Unspecified complication of procedure, initial encounter Status: Acute Plan: - Patient is a 57 y/o male with HTN, diabetes, obesity, and chronic LBP who recently underwent L4-L5 decompressive left hemilaminectomy, mesial facetectomy, foraminotomy with microsurgical resection of the disc on by Dr. Parson. - He was seen outpt by Dr. Parson in clinic on 09/09 due to increased pain in his left back. He was afebrile at that time but reportedly had warmth on his back and was started on Bactrim and Keflex. - He presented to the ED at [facility] on 09/10 with "cold sweats", dizziness, and worsening back pain. There he had temp of 100.0. - CT Lumbar spine demonstrated 8.6 x 7 cm fluid collection in the superficial fascia. It was felt to represent seroma though hematoma or abscess could not be excluded. He had a normal white count of 10. He was hypotensive with blood pressure in the 60s. He was given 1 L NS bolus, Benadryl 25 mg po, epi 1 mg IV, Vancomycin 2 gram, Zosyn 4.5 gram, Morphine 2mg IV and Zofran 4 mg IV at outside hospital. R IJ CVL was placed and he was started on Levophed and he was transferred to [facility] [place] and admitted to ICU - Neurosurgery was consulted for recommendations - On 09/11 pt underwent needle aspiration of lumbar postoperative soft tissue fluid collection - Fluid cultures (09/11) with no growth in 48 hours - Pt was weaned off the vasopressors. - Blood cultures (09/11) with no growth x 2 days - Cont. Gabapentin - Lortab PRN and Morphine as needed for breakthrough pain - Pt reportedly had blood cultures drawn at [facility] prior to transfer to [facility]. Will try to obtain those results today. - Pt was started on Meropenem 1 g IV Q8H and Vancomycin on 09/11. Pharmacy dosing for the Vanc - ID following. (2) Rash and nonspecific skin eruption ICD Codes: R21 - Rash and other nonspecific skin eruption Status: Acute Plan: - Pt developed some sort of rash, etiology unclear, presumed to be related to his outpatient Bactrim or Keflex as patient says rash was present prior to presentation at outside hospital. - Pt is started on Solu-Cortef 50mg IV every 6 hours, Benadryl 50 IV every 6 hours, famotidine. - The PCN/Cephalopsporin were held - Cont. Meropenem and vanc - Decreased steroids to once daily and wean off over next few days (3) Asthma ICD Codes: J45.909 - Unspecified asthma, uncomplicated Status: Chronic Plan: - Home meds continued, Jeanniefranci Mariajosedeangelo - Pt is on RA - Cont. IS every hour WA - Albuterol every 2 hours as needed. (4) HTN (hypertension) ICD Codes: I10 - Essential (primary) hypertension Status: Chronic Plan: - Home meds, lisinopril 10 daily and HCTZ 12.5mg po daily have been held due to hypotension and acute kidney injury. - Monitor (5) Diabetes mellitus type 2, noninsulin dependent ICD Codes: E11.9 - Type 2 diabetes mellitus without complications Status: Chronic Plan: - NovoLog SSI - Accu checks - Monitor closely while on steroids. - Hold home OHA, metformin 500 daily (6) CLAUDY (acute kidney injury) ICD Codes: N17.9 - Acute kidney failure, unspecified Status: Acute Plan: - Resolved. - Creatinine at outside hospital was 2.15. Baseline creatinine 0.9. - Pt received IV contrast at outside hospital 09/11, Cr on 09/12 was 0.94 (7) S/P lumbar laminectomy ICD Codes: Z98.890 - Other specified postprocedural states Plan: - See above Problem Qualifiers (1) Post-operative complication: Qualified Codes: G97.82 - Other postprocedural complications and disorders of nervous system Sindi Crump Sep 13, 2017 11:40
[2017-09-13] MEDS: VANCOMYCIN INJ 2,500 MG in SODIUM CHLORID 0.9% 500 ML INJ 500 ML IV SCH ×2 (11:56→23:34)
[2017-09-13 12:00] VITALS: BP 91/49; PULSE 92; RESP 18; TEMP 95.4; O2SAT 97
[2017-09-13 13:44] VITALS: BP 124/56
--- NOTE | 2017-09-13 15:04 | HHI.IDPN ---
Subjective Subjective Remarks 57 yo M with PMH of HTN, diabetes, obesity, and chronic LBP who underwent L4-L5 decompressive left hemilaminectomy, mesial facetectomy, foraminotomy with microsurgical resection of the disc on 07/27/[address] Parson. He was seen by Dr. Parson in clinic on 09/09 due to pain in his left back. He was afebrile at that time but reportedly had warmth on his back and was started on Bactrim and Keflex which he took. At around 4 pm on 09/10 he developed "cold sweats", dizziness, and worsening back pain to the point that he said he could barely make it to the bathroom.. He presented to [facility]. There he had temp of 100.0. CT scan demonstrated 8.6 x 7 cm fluid collection in the superficial fascia. It was felt to represent seroma though hematoma or abscess could not be excluded. He had a normal white count of 10. He was hypotensive with blood pressure in the 60s. He was given 1 L NS bolus, epinephrine 0.3 mg subcut, benadryl 25 mg po, epi 1 mg IV, Vancomycin 2 gram, Zosyn 4.5 gram, Morphine 2mg IV and Zofran 4 mg IV at outside hospital. R IJ CVL was placed and he was started on levophed which is running at 5 g per KG per minute. He was [place] [facility] [place]. MRI has been ordered. He currently complains of low back pain and thirst. He has a diffuse blanching erythematous rash over his entire thorax anteriorly and posteriorly and all extremities. He states the rash was present upon arrival to the outside hospital and it is not pruritic. He does have some palmar pruritus without palmar rash. He denies chest pain, shortness of breath, wheezing. He states he has been on burst steroids in the past up to 3 days for "his breathing" but denies any prolonged steroid use. It does not appear that he receives steroids at the outside hospital. Notes reviewed Temps ok BP better, but still not his normal On steroids Still with back pain, and feels like there cindy lump in his back Aspiration done this weekend Had 261 WBC, mostly neutrophils, C/S negative BC from the other hospital were negative Patient however was on Bactrim and Keflex prior to hospitalization Antibiotics Vancomycin Meropenem Lines PIV Past Medical History Hypertension Diabetes GERD Chronic low back pain Obesity Past Surgical History Right rotator cuff repair Hemorrhoidectomy Lumbar hemilaminectomy Allergies: Coded Allergies: methadone (Verified Allergy, Severe, RESPIRATORY ARREST, 09/11/17) sulfamethoxazole (Verified Allergy, Severe, 09/11/17) tetracycline (Verified Allergy, Severe, Rash, 09/11/17) A CHILD RASH TONGUE SWELLING trimethoprim (Verified Allergy, Severe, 09/11/17) cephalexin (Verified Allergy, Unknown, rash, 09/11/17) Received at same time as bactrim so unclear which abx caused it Objective . Vital Signs Date Time Temp Pulse Resp B/P (MAP) Pulse Ox O2 Delivery O2 Flow Rate FiO2 09/13/17 13:44 124/56 (78) 09/13/17 12:00 95.4 92 18 91/49 (63) 97 09/13/17 07:49 95.8 66 18 144/73 (96) 98 09/13/17 03:45 96.7 64 19 99/58 (72) 99 09/12/17 23:31 96.7 93 19 100/54 (69) 95 09/12/17 19:37 97.1 91 19 104/63 (77) 94 09/12/17 16:00 95.5 84 18 122/60 (80) 95 . Laboratory Tests Test 09/12/17 05:00 White Blood Count 12.9 TH/MM3 Red Blood Count 3.90 MIL/MM3 Hemoglobin 11.4 GM/DL Hematocrit 34.8 % Mean Corpuscular Volume 89.3 FL Mean Corpuscular Hemoglobin 29.2 PG Mean Corpuscular Hemoglobin Concent 32.8 % Red Cell Distribution Width 14.0 % Platelet Count 287 TH/MM3 Mean Platelet Volume 7.6 FL Neutrophils (%) (Auto) 91.7 % Lymphocytes (%) (Auto) 5.2 % Monocytes (%) (Auto) 3.0 % Eosinophils (%) (Auto) 0.0 % Basophils (%) (Auto) 0.1 % Neutrophils # (Auto) 11.9 TH/MM3 Lymphocytes # (Auto) 0.7 TH/MM3 Monocytes # (Auto) 0.4 TH/MM3 Eosinophils # (Auto) 0.0 TH/MM3 Basophils # (Auto) 0.0 TH/MM3 CBC Comment DIFF FINAL Differential Comment Laboratory Tests Test 09/11/17 18:15 09/12/17 05:00 Troponin I LESS THAN 0.02 NG/ML Blood Urea Nitrogen 16 MG/DL Creatinine 0.94 MG/DL Random Glucose 163 MG/DL Total Protein 6.7 GM/DL Albumin 2.6 GM/DL Calcium Level 7.9 MG/DL Phosphorus Level 1.2 MG/DL Magnesium Level 2.2 MG/DL Alkaline Phosphatase 82 U/L Aspartate Amino Transf (AST/SGOT) 20 U/L Alanine Aminotransferase (ALT/SGPT) 51 U/L Total Bilirubin 0.2 MG/DL Sodium Level 140 MEQ/L Potassium Level 4.4 MEQ/L Chloride Level 107 MEQ/L Carbon Dioxide Level 26.8 MEQ/L Anion Gap 6 MEQ/L Estimat Glomerular Filtration Rate 82 ML/MIN Microbiology Date/Time Source Procedure Growth Status 09/11/17 05:00 Blood Peripheral Aerobic Blood Culture - Preliminary NO GROWTH IN 2 DAYS Resulted 09/11/17 05:00 Blood Peripheral Anaerobic Blood Culture - Preliminary NO GROWTH IN 2 DAYS Resulted 09/11/17 04:45 Blood Peripheral Aerobic Blood Culture - Preliminary NO GROWTH IN 2 DAYS Resulted 09/11/17 04:45 Blood Peripheral Anaerobic Blood Culture - Preliminary NO GROWTH IN 2 DAYS Resulted 09/11/17 21:40 Fluid Other Gram Stain - Final Resulted 09/11/17 21:40 Fluid Other Body Fluid Culture - Preliminary NO GROWTH IN 48 HOURS. Resulted Imaging Last Impressions Renal Ultrasound 09/11/17 0000 Signed Impressions: Service Date/Time: Monday, September 11, 2017 07:18 - CONCLUSION: Renal ultrasound within normal limits. Ramu Laguna MD Lumbar Spine MRI 09/11/17 0000 Signed Impressions: Service Date/Time: Monday, September 11, 2017 02:46 - CONCLUSION: There is a fluid filled tract which communicates from the L4-5 disc, through the left bony spinal canal and into the subdermal soft tissues. The various components are measured above. There is enhancement in the wall of the fluid collections in the the subcutaneous and intramuscular components of the tract. Aleksander Adler MD Chest X-Ray 09/11/17 0000 Signed Impressions: Service Date/Time: Monday, September 11, 2017 05:03 - CONCLUSION: Right IJ catheter in good position. No evidence of pneumothorax. Aleksander Adler MD Physical Exam GENERAL: awake and alert, not in respiratory distress. SKIN: Warm and dry. Has erythematous rash in UE, upper chest, back and some in upper thighs. Also has keratotic rash scattered in upper chest No ecchymoses and no evidence of embolic lesions. HEAD: Atraumatic. Normocephalic. No temporal wasting, or tenderness. EYES: Merigold conjunctiva. No petechia or hemorrhage. Pupils equal, round and reactive to light. Extraocular movements full and intact. No scleral icterus. No injection or drainage. EARS, NOSE AND THROAT: Nose without bleeding or purulent nasal discharge. No sinus tenderness. Mucous membranes pink and moist. No oral lesions noted. No exudate. No oral thrush. NECK: Trachea midline. Supple and not tender, no meningeal signs. No lymphadenopathy CARDIOVASCULAR: Regular rate and rhythm. No murmurs, rubs or gallops heard RESPIRATORY: Clear to auscultation. Breath sounds equal bilaterally. No rales , wheezing or rhonchi ABDOMEN: Soft, obese, non-tender, nondistended. Bowel sounds present and normoactive. No guarding. No rebound. No organomegaly. BACK: Well healed incision in his lower back, with improving erythema, min indurated, seems pacheco today EXTREMITIES: No clubbing, cyanosis, or edema. No joint effusion, has good ROM. No calf tenderness. Well perfused and warm. Notable for the rash. NEUROLOGICAL: Awake and alert. Cranial nerves grossly intact. Motor grossly within normal limits. PSYCHIATRIC: Normal affect, calm and cooperative. 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 better - patient has taken Keflex and Bactrim in the past - he received IV Ancef for his surgery last Jul 27 RECOMMENDATION Patient got IV Vanco in [facility] Follow C/S Continue IV Vanco ?Reimage, ?reevaluate if increase size of fluid collection Monitor progress Explained plan to patient D/W Michelle Sinclair MD Sep 13, 2017 15:04
[2017-09-13 16:00] VITALS: BP 119/58; PULSE 71; RESP 18; TEMP 95.5; O2SAT 98
[2017-09-13 20:20] VITALS: BP 105/51; PULSE 61; RESP 16; TEMP 96.9; O2SAT 97
[2017-09-14 00:25] VITALS: BP 94/47; PULSE 70; RESP 16; TEMP 96.8; O2SAT 97
[2017-09-14] MEDS: CHLORHEXIDINE GLUCONATE 2 % 1 PACK (2 CLOTHS) TOP SCH ×2 (04:00→20:47)
[2017-09-14] MEDS: ACETAMINOPHEN/HYDROcodone 325 MG/5 MG TAB PO PRN ×2 (04:06→13:01)
[2017-09-14] MEDS: diphenhydrAMINE HCL 50 MG/ML VIAL IV PUSH SCH ×5 (04:06→20:48)
[2017-09-14] MEDS: FAMOTIDINE 20 MG/2 ML VIAL IV PUSH SCH ×3 (04:06→20:48)
[2017-09-14 04:25] VITALS: BP 117/62; PULSE 74; RESP 16; TEMP 96.4; O2SAT 97
[2017-09-14 05:08] LABS: AUTOMATED NEUTROPHIL # 3.7 TH/MM3 (1.8-7.7); BASOPHIL % 0.5 % (0.0-2.0); EOSINOPHIL # 0.2 TH/MM3 (0-0.4); EOSINOPHIL % 2.8 % (0.0-4.0); HEMATOCRIT 34.4 % (39.0-51.0); HEMO FLAGS DIFF FINAL; LYMPH % 34.3 % (9.0-44.0); LYMPHOCYTE # 2.3 TH/MM3 (1.0-4.8); MEAN CELL VOLUME 89.5 FL (80.0-100.0); MEAN CORPUSCULAR HEMOGLOBIN 30.1 PG (27.0-34.0); MEAN CORPUSCULAR HGB CONC 33.6 % (32.0-36.0); MONO % 7.5 % (0.0-8.0); NEUT % 54.9 % (16.0-70.0); PLATELET COUNT 267 TH/MM3 (150-450); RED BLOOD COUNT 3.84 MIL/MM3 (4.50-5.90); RED CELL DISTRIBUTION WIDTH 14.2 % (11.6-17.2); WHITE BLOOD COUNT 6.8 TH/MM3 (4.0-11.0)
[2017-09-14] MEDS: SODIUM CHLOR 0.9% 1000 ML INJ 1,000 ML IV SCH ×4 (05:08→20:48)
[2017-09-14 05:30] LABS: BICARBONATE 26.1 MEQ/L (21.0-32.0); MAGNESIUM 2.2 MG/DL (1.5-2.5); POTASSIUM 3.9 MEQ/L (3.5-5.1)
[2017-09-14 08:00] VITALS: BP 155/81; PULSE 71; RESP 18; TEMP 96; O2SAT 97
[2017-09-14] MEDS: INSULIN ASPART SUPPLEMENTAL SCALE SQ SCH ×4 (08:00→20:46)
--- NOTE | 2017-09-14 08:53 | HHI.NSPN ---
(Chen Peck) Note Status Status: Progress Note (Chen Peck) Interval History Interval History Mr. Jung is a 57-year-old male who underwent a left L4 5 decompressive semi- laminectomy medial facetectomy foraminotomy and discectomy on 07/27/2017. He states that prior to surgery he had some pain in the left proximal lower extremity. He states that he was doing recently well until last week when he started to develop increasing aching in the low back with some pain radiating back down the left lower extremity. He has no complaint of weakness or numbness in the lower extremities and no complaint of bowel or bladder dysfunction. He has not had any fevers or chills. He was seen back in the neurosurgery clinic on 09/09/2017 and was started on Keflex and Bactrim. However last evening he started getting dizzy and sweating with generalized weakness. He reported to [facility] emergency room for evaluation and was noted to be hypotensive with systolic blood pressure in the 60s. He was given vancomycin and Zosyn along with a fluid bolus. He was started on a Levophed IV drip for the hypotension and transferred to [facility] emergency room for further evaluation. Today he states that he feels much better. He still has some aching pain in the left leg. No complaining of significant dizziness, vertigo today. No nausea or vomiting. 09/12: This morning the patient is seen up and about in the room. His gait is steady. He is disconnected from the monitor. He says his back feels tight and he has some spasms to the buttocks/back of the thighs. He does say he has numbness going down both lower extremities which he relates to circulation. Nursing reports that the patient has been haemodynamically stable and the norepinephrine drip was discontinued yesterday. 09/13: mild pulsating pain over the wound. denies fevers or chills. feeling much better today. hypotension improved. 09/14: final wound and blood cultures negative for infection. patient still has fluctuating episodes of mild hypotension. c/o of moderate discomfort over the wound site due to the swelling, but no drainage from his wound. (Chen Peck) Labs, Micro, & Vital Signs Results Date Time Temp Pulse Resp B/P (MAP) Pulse Ox O2 Delivery O2 Flow Rate FiO2 09/14/17 04:25 96.4 74 16 117/62 (80) 97 09/14/17 00:25 96.8 70 16 94/47 (63) 97 09/13/17 20:20 96.9 61 16 105/51 (69) 97 09/13/17 19:42 Room Air 09/13/17 16:00 95.5 71 18 119/58 (78) 98 09/13/17 13:44 124/56 (78) 09/13/17 12:00 95.4 92 18 91/49 (63) 97 Constitutional Vital Signs Date Time Temp Pulse Resp B/P (MAP) Pulse Ox O2 Delivery O2 Flow Rate FiO2 09/14/17 04:25 96.4 74 16 117/62 (80) 97 09/14/17 00:25 96.8 70 16 94/47 (63) 97 09/13/17 20:20 96.9 61 16 105/51 (69) 97 09/13/17 19:42 Room Air 09/13/17 16:00 95.5 71 18 119/58 (78) 98 09/13/17 13:44 124/56 (78) 09/13/17 12:00 95.4 92 18 91/49 (63) 97 (Chen Peck) Physical Exam Alert and oriented x 3. Speech is fluent. Sitting up in chair comfortably eating his breakfast. Lumbar incision well healed, healed with mild fluctuation without redness, warmth, drainage. Motor: 5/5 to all major flexion & extension muscle groups to the lower extremities, left extensor hallucis longus 4+/5 Sensory: decreased to light touch to the anterior thighs bilaterally o/w intact to the lower extremities. Skin: no cyanosis (Chen Peck) Medications Current Medications Current Medications Medications (Trade) Dose Ordered Sig/Cherry Route PRN Reason Start Time Stop Time Status Last Admin Dose Admin Norepinephrine Bitartrate 250 ml @ 7.5 mls/hr TITRATE PRN IV Blood pressure management 09/11/17 01:45 09/11/17 11:59 Terbutaline Sulfate (Brethine Inj) 1 mg UNSCH PRN SQ For Extravasation 09/11/17 01:45 Pharmacy Profile Note 0 ml @ 0 mls/hr UNSCH OTHER 09/11/17 05:00 Fluticasone/ Vilanterol (Breo Ellipta 200-25 Inh) 1 puff DAILY INH 09/11/17 09:00 09/13/17 08:07 Gabapentin (Neurontin) 100 mg TID PO 09/11/17 09:00 09/13/17 17:18 Sodium Chloride 1,000 ml @ 125 mls/hr Q8H IV 09/11/17 05:08 09/13/17 23:35 Sodium Chloride (NS Flush) 2 ml UNSCH PRN IV FLUSH FLUSH AFTER USING IV ACCESS 09/11/17 05:15 09/13/17 00:17 Sodium Chloride (NS Flush) 2 ml BID IV FLUSH 09/11/17 09:00 09/13/17 23:35 Acetaminophen (Tylenol) 650 mg Q6H PRN PO FEVER >101F 09/11/17 05:15 09/11/17 09:32 Acetaminophen/ Hydrocodone Bitart ([place] 5-325 Mg) 1 tab Q4H PRN PO PAIN SCALE 1 TO 5 09/11/17 05:15 Morphine Sulfate (Morphine Inj) 2 mg Q2H PRN IV PUSH BREAKHTHROUGH PAIN 1-5 09/11/17 05:15 Pantoprazole Sodium (Protonix) 40 mg DAILY PO 09/11/17 09:00 09/11/17 08:58 Ondansetron HCl (Zofran Inj) 4 mg Q6H PRN IV PUSH NAUSEA OR VOMITING 09/11/17 05:15 Albuterol Sulfate (Albuterol Neb) 2.5 mg Q2HR NEB PRN INH SOB/WHEEZING 09/11/17 05:15 Miscellaneous Information 1 Q361D XX 09/11/17 05:15 Chlorhexidine Gluconate (Chlorhexidine 2% Cloth) 3 pack Taper DAILY@04 TOP 09/12/17 04:00 09/08/18 03:59 Chlorhexidine Gluconate (Chlorhexidine 2% Cloth) 3 pack UNSCH PRN TOP HYGIENIC CARE 09/11/17 05:15 Senna/Docusate Sodium (Magali-Colace) 1 tab BID PO 09/11/17 09:00 09/11/17 21:10 Magnesium Hydroxide (Milk Of Magnesia Liq) 30 ml Q12H PRN PO Mild constipation 09/11/17 05:15 Sennosides (Senokot) 17.2 mg Q12H PRN PO Moderate constipation 09/11/17 05:15 Bisacodyl (Dulcolax Supp) 10 mg DAILY PRN RECTAL SEVERE CONSITIPATION 09/11/17 05:15 Lactulose (Lactulose Liq) 30 ml DAILY PRN PO SEVERE CONSITIPATION 09/11/17 05:15 Acetaminophen/ Hydrocodone Bitart ([place] 5-325 Mg) 2 tab Q6H PRN PO PAIN 6-10 09/11/17 05:15 09/14/17 04:06 Morphine Sulfate (Morphine Inj) 4 mg Q4H PRN IV PUSH BREAKTHROUGH PAIN 6-10 09/11/17 05:15 Dextrose (D50w (Vial) Inj) 50 ml UNSCH PRN IV PUSH HYPOGLYCEMIA-SEE COMMENTS 09/11/17 05:30 Glucagon (Glucagon Inj) 1 mg UNSCH PRN OTHER HYPOGLYCEMIA-SEE COMMENTS 09/11/17 05:30 Insulin Aspart (NovoLOG SUPPLEMENTAL SCALE) 1 ACHS SLIDING SCALE SQ 09/11/17 08:00 09/12/17 17:00 Famotidine (Pepcid Inj) 10 mg Q12H IV PUSH 09/11/17 18:00 09/14/17 04:06 Diphenhydramine HCl (Benadryl Inj) 50 mg Q6H IV PUSH 09/12/17 00:00 09/13/17 23:36 Vancomycin HCl 2500 mg/Sodium Chloride 525 ml @ 257.5 mls/ hr Q12H IV 09/13/17 11:00 09/13/17 23:34 Miscellaneous Information SPECIFIC LAB TO BE CHU... ONCE ONCE .XX 09/14/17 10:45 09/14/17 10:46 Hydrocortisone Sodium Succinate (SoluCORTEF INJ) 50 mg DAILY IV PUSH 09/14/17 09:00 (Chen Peck) Medical Decision Making MDM Remarks 57 y/o male 1. 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 Hypotension, resolved, with fluctuating episodes of mild hypotension. final blood cultures negative for infection (Chen Peck) Plan Plan Remarks continue medical management clear to dc from NRS standpoint patient may follow up in the office at his next scheduled visit (Chen Peck) Attending Statement The exam, history, and the medical decision-making described in the above note were completed with the assistance of the mid-level provider. I reviewed and agree with the findings presented. I attest that I had a [id number] encounter with the patient on the same day, and personally performed and documented my assessment and findings in the medical record. (Ozzie Parson MD) Chen Peck Sep 14, 2017 08:53 Ozzie Parson MD Sep 14, 2017 20:22
[2017-09-14] MEDS: PANTOPRAZOLE SOD 40 MG DELAYED RELEASE TAB PO SCH (09:00)
[2017-09-14] MEDS: DOCUSATE SODIUM 50 MG/SENNA 8.6 MG TAB PO SCH ×2 (09:00→20:47)
[2017-09-14] MEDS: GABAPENTIN 100 MG CAP PO SCH ×3 (09:47→18:50)
[2017-09-14] MEDS: HYDROCORTISONE SOD SUCCINATE 100 MG VIAL IV PUSH SCH (09:48)
[2017-09-14] MEDS: FLUTICASONE 200 MCG/VILANTEROL 25 MCG INHALER INH SCH (09:49)
[2017-09-14] MEDS: SODIUM CHLORIDE 0.9% FLUSH 10 ML FLUSH IV FLUSH SCH ×2 (09:55→18:51)
--- NOTE | 2017-09-14 10:41 | HHI.PR ---
Objective Vitals Vital Signs Date Time Temp Pulse Resp B/P (MAP) Pulse Ox O2 Delivery O2 Flow Rate FiO2 09/14/17 08:00 96.0 71 18 155/81 (105) 97 09/14/17 04:25 96.4 74 16 117/62 (80) 97 09/14/17 00:25 96.8 70 16 94/47 (63) 97 09/13/17 20:20 96.9 61 16 105/51 (69) 97 09/13/17 19:42 Room Air 09/13/17 16:00 95.5 71 18 119/58 (78) 98 09/13/17 13:44 124/56 (78) 09/13/17 12:00 95.4 92 18 91/49 (63) 97 Result Diagram: 09/14/17 0430 09/14/17 0430 Imaging Last Impressions Renal Ultrasound 09/11/17 0000 Signed Impressions: Service Date/Time: Monday, September 11, 2017 07:18 - CONCLUSION: Renal ultrasound within normal limits. Ramu Laguna MD Lumbar Spine MRI 09/11/17 0000 Signed Impressions: Service Date/Time: Monday, September 11, 2017 02:46 - CONCLUSION: There is a fluid filled tract which communicates from the L4-5 disc, through the left bony spinal canal and into the subdermal soft tissues. The various components are measured above. There is enhancement in the wall of the fluid collections in the the subcutaneous and intramuscular components of the tract. Aleksander Adler MD Chest X-Ray 09/11/17 0000 Signed Impressions: Service Date/Time: Monday, September 11, 2017 05:03 - CONCLUSION: Right IJ catheter in good position. No evidence of pneumothorax. Aleksander Adler MD Objective Remarks General: NAD, AAOx3 Chest: CTA Cardiac: Regular Abd: +BS, soft ND/NT Back: Lumbar incision well healed, healed with mild fluctuation without redness , warmth, drainage. Ext: No edema A/P Problem List: (1) Post-operative complication ICD Codes: T81.9XXA - Unspecified complication of procedure, initial encounter Status: Acute Plan: - Patient is a 57 y/o male with HTN, diabetes, obesity, and chronic LBP who recently underwent L4-L5 decompressive left hemilaminectomy, mesial facetectomy, foraminotomy with microsurgical resection of the disc on by Dr. Parson. - He was seen outpt by Dr. Parson in clinic on 09/09 due to increased pain in his left back. He was afebrile at that time but reportedly had warmth on his back and was started on Bactrim and Keflex. - He presented to the ED at [facility] on 09/10 with "cold sweats", dizziness, and worsening back pain. There he had temp of 100.0. - CT Lumbar spine demonstrated 8.6 x 7 cm fluid collection in the superficial fascia. It was felt to represent seroma though hematoma or abscess could not be excluded. He had a normal white count of 10. He was hypotensive with blood pressure in the 60s. He was given 1 L NS bolus, Benadryl 25 mg po, epi 1 mg IV, Vancomycin 2 gram, Zosyn 4.5 gram, Morphine 2mg IV and Zofran 4 mg IV at outside hospital. 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 - Blood cultures (09/11) with no growth x 2 days - Cont. Gabapentin - Lortab PRN and Morphine as needed for breakthrough pain - BC from [facility] were reportedly negative per ID, however pt was on Bactrim and Keflex prior to hospitalization - Pt was started on Meropenem 1 g IV Q8H and Vancomycin on 09/11. Pharmacy dosing for the Vanc - Meropenem was stopped on 09/13 - ID following. - Pt still with episodes of hypotension ?need for re-imaging, will discuss with ID (2) Rash and nonspecific skin eruption ICD Codes: R21 - Rash and other nonspecific skin eruption Status: Acute Plan: - Pt developed some sort of rash, etiology unclear, presumed to be related to his outpatient Bactrim or Keflex as patient says rash was present prior to presentation at outside hospital. - Pt is started on Solu-Cortef 50mg IV every 6 hours, Benadryl 50 IV every 6 hours, famotidine. - The PCN/Cephalopsporin were held - Cont. Meropenem and vanc - Decreased steroids to once daily and wean off over next few days (3) Asthma ICD Codes: J45.909 - Unspecified asthma, uncomplicated Status: Chronic Plan: - Home meds continued, Daniele Valderrama - Pt is on RA - Cont. IS every hour WA - Albuterol every 2 hours as needed. (4) HTN (hypertension) ICD Codes: I10 - Essential (primary) hypertension Status: Chronic Plan: - Home meds, lisinopril 10 daily and HCTZ 12.5mg po daily have been held due to hypotension and acute kidney injury. - Monitor (5) Diabetes mellitus type 2, noninsulin dependent ICD Codes: E11.9 - Type 2 diabetes mellitus without complications Status: Chronic Plan: - NovoLog SSI - Accu checks - Monitor closely while on steroids. - Hold home OHA, metformin 500 daily (6) CLAUDY (acute kidney injury) ICD Codes: N17.9 - Acute kidney failure, unspecified Status: Acute Plan: - Resolved. - Creatinine at outside hospital was 2.15. Baseline creatinine 0.9. - Pt received IV contrast at outside hospital 09/11, Cr on 09/12 was 0.94 (7) S/P lumbar laminectomy ICD Codes: Z98.890 - Other specified postprocedural states Plan: - See above Problem Qualifiers (1) Post-operative complication: Qualified Codes: G97.82 - Other postprocedural complications and disorders of nervous system Sindi Crump Sep 14, 2017 10:41
[2017-09-14] MEDS ORDERED: PHARMACY ORDERED LAB ONE (10:45)
[2017-09-14 12:00] VITALS: BP 139/74; PULSE 81; RESP 18; TEMP 98.1; O2SAT 97
[2017-09-14] MEDS: VANCOMYCIN INJ 2,500 MG in SODIUM CHLORID 0.9% 500 ML INJ 500 ML IV SCH (12:58)
--- NOTE | 2017-09-14 14:06 | HHI.IDPN ---
Subjective Subjective Remarks 57 yo M with PMH of HTN, diabetes, obesity, and chronic LBP who underwent L4-L5 decompressive left hemilaminectomy, mesial facetectomy, foraminotomy with microsurgical resection of the disc on 07/27/[address] Parson. He was seen by Dr. Parson in clinic on 09/09 due to pain in his left back. He was afebrile at that time but reportedly had warmth on his back and was started on Bactrim and Keflex which he took. At around 4 pm on 09/10 he developed "cold sweats", dizziness, and worsening back pain to the point that he said he could barely make it to the bathroom.. He presented to [facility]. There he had temp of 100.0. CT scan demonstrated 8.6 x 7 cm fluid collection in the superficial fascia. It was felt to represent seroma though hematoma or abscess could not be excluded. He had a normal white count of 10. He was hypotensive with blood pressure in the 60s. He was given 1 L NS bolus, epinephrine 0.3 mg subcut, benadryl 25 mg po, epi 1 mg IV, Vancomycin 2 gram, Zosyn 4.5 gram, Morphine 2mg IV and Zofran 4 mg IV at outside hospital. R IJ CVL was placed and he was started on levophed which is running at 5 g per KG per minute. He was transferred to [facility] for neurosurgical consultation. MRI has been ordered. He currently complains of low back pain and thirst. He has a diffuse blanching erythematous rash over his entire thorax anteriorly and posteriorly and all extremities. He states the rash was present upon arrival to the outside hospital and it is not pruritic. He does have some palmar pruritus without palmar rash. He denies chest pain, shortness of breath, wheezing. He states he has been on burst steroids in the past up to 3 days for "his breathing" but denies any prolonged steroid use. It does not appear that he receives steroids at the outside hospital. Notes reviewed Temps ok C/O [place], usually when he sits up or stand uo On steroids, being decreased All C/S negative Aspiration done this weekend Had 261 WBC, mostly neutrophils, C/S negative BC from the other hospital were negative Patient however was on Bactrim and Keflex prior to hospitalization Antibiotics Vancomycin Current Medications Medications (Trade) Dose Ordered Sig/Cherry Route Start Time Stop Time Status Last Admin Norepinephrine Bitartrate 250 ml @ 7.5 mls/hr TITRATE PRN IV 09/11/17 01:45 09/11/17 11:59 (Brethine Inj) 1 mg UNSCH PRN SQ 09/11/17 01:45 (Breo Ellipta 200-25 Inh) 1 puff DAILY INH 09/11/17 09:00 09/14/17 09:49 (Neurontin) 100 mg TID PO 09/11/17 09:00 09/14/17 12:58 Sodium Chloride 1,000 ml @ 125 mls/hr Q8H IV 09/11/17 05:08 09/14/17 13:11 (NS Flush) 2 ml UNSCH PRN IV FLUSH 09/11/17 05:15 09/13/17 00:17 (NS Flush) 2 ml BID IV FLUSH 09/11/17 09:00 09/14/17 09:55 (Tylenol) 650 mg Q6H PRN PO 09/11/17 05:15 09/11/17 09:32 ([place] 5-325 Mg) 1 tab Q4H PRN PO 09/11/17 05:15 (Morphine Inj) 2 mg Q2H PRN IV PUSH 09/11/17 05:15 (Protonix) 40 mg DAILY PO 09/11/17 09:00 09/11/17 08:58 (Zofran Inj) 4 mg Q6H PRN IV PUSH 09/11/17 05:15 (Albuterol Neb) 2.5 mg Q2HR NEB PRN INH 09/11/17 05:15 Miscellaneous Information 1 Q361D XX 09/11/17 05:15 (Chlorhexidine 2% Cloth) 3 pack Taper DAILY@04 TOP 09/12/17 04:00 09/08/18 03:59 (Chlorhexidine 2% Cloth) 3 pack UNSCH PRN TOP 09/11/17 05:15 (Magali-Colace) 1 tab BID PO 09/11/17 09:00 09/11/17 21:10 (Milk Of Magnesia Liq) 30 ml Q12H PRN PO 09/11/17 05:15 (Senokot) 17.2 mg Q12H PRN PO 09/11/17 05:15 (Dulcolax Supp) 10 mg DAILY PRN RECTAL 09/11/17 05:15 (Lactulose Liq) 30 ml DAILY PRN PO 09/11/17 05:15 ([place] 5-325 Mg) 2 tab Q6H PRN PO 09/11/17 05:15 09/14/17 13:01 (Morphine Inj) 4 mg Q4H PRN IV PUSH 09/11/17 05:15 (D50w (Vial) Inj) 50 ml UNSCH PRN IV PUSH 09/11/17 05:30 (Glucagon Inj) 1 mg UNSCH PRN OTHER 09/11/17 05:30 (NovoLOG SUPPLEMENTAL SCALE) 1 ACHS SLIDING SCALE SQ 09/11/17 08:00 09/12/17 17:00 (Benadryl Inj) 50 mg Q6H IV PUSH 09/12/17 00:00 09/13/17 23:36 (SoluCORTEF INJ) 50 mg DAILY IV PUSH 09/14/17 09:00 09/14/17 09:48 (Pepcid Inj) 20 mg Q12H IV PUSH 09/14/17 18:00 Miscellaneous Information SPECIFIC LAB TO BE CHU... ONCE ONCE .XX 09/16/17 12:45 09/16/17 12:46 Lines PIV Past Medical History Hypertension Diabetes GERD Chronic low back pain Obesity Past Surgical History Right rotator cuff repair Hemorrhoidectomy Lumbar hemilaminectomy Allergies: Coded Allergies: methadone (Verified Allergy, Severe, RESPIRATORY ARREST, 09/11/17) sulfamethoxazole (Verified Allergy, Severe, 09/11/17) tetracycline (Verified Allergy, Severe, Rash, 09/11/17) A CHILD RASH TONGUE SWELLING trimethoprim (Verified Allergy, Severe, 09/11/17) cephalexin (Verified Allergy, Unknown, rash, 09/11/17) Received at same time as bactrim so unclear which abx caused it Objective . Vital Signs Date Time Temp Pulse Resp B/P (MAP) Pulse Ox O2 Delivery O2 Flow Rate FiO2 09/14/17 08:00 96.0 71 18 155/81 (105) 97 09/14/17 04:25 96.4 74 16 117/62 (80) 97 09/14/17 00:25 96.8 70 16 94/47 (63) 97 09/13/17 20:20 96.9 61 16 105/51 (69) 97 09/13/17 19:42 Room Air 09/13/17 16:00 95.5 71 18 119/58 (78) 98 . Laboratory Tests Test 09/14/17 04:30 White Blood Count 6.8 TH/MM3 Red Blood Count 3.84 MIL/MM3 Hemoglobin 11.5 GM/DL Hematocrit 34.4 % Mean Corpuscular Volume 89.5 FL Mean Corpuscular Hemoglobin 30.1 PG Mean Corpuscular Hemoglobin Concent 33.6 % Red Cell Distribution Width 14.2 % Platelet Count 267 TH/MM3 Mean Platelet Volume 7.8 FL Neutrophils (%) (Auto) 54.9 % Lymphocytes (%) (Auto) 34.3 % Monocytes (%) (Auto) 7.5 % Eosinophils (%) (Auto) 2.8 % Basophils (%) (Auto) 0.5 % Neutrophils # (Auto) 3.7 TH/MM3 Lymphocytes # (Auto) 2.3 TH/MM3 Monocytes # (Auto) 0.5 TH/MM3 Eosinophils # (Auto) 0.2 TH/MM3 Basophils # (Auto) 0.0 TH/MM3 CBC Comment DIFF FINAL Differential Comment Laboratory Tests Test 09/14/17 04:30 Blood Urea Nitrogen 16 MG/DL Creatinine 0.77 MG/DL Random Glucose 96 MG/DL Calcium Level 7.9 MG/DL Magnesium Level 2.2 MG/DL Sodium Level 142 MEQ/L Potassium Level 3.9 MEQ/L Chloride Level 108 MEQ/L Carbon Dioxide Level 26.1 MEQ/L Anion Gap 8 MEQ/L Estimat Glomerular Filtration Rate 104 ML/MIN Microbiology Date/Time Source Procedure Growth Status 09/11/17 21:40 Fluid Other Gram Stain - Final Complete 09/11/17 21:40 Fluid Other Body Fluid Culture - Final NO GROWTH IN 72 HRS.--AEROBICALLY OR ... Complete Imaging Last Impressions Renal Ultrasound 09/11/17 0000 Signed Impressions: Service Date/Time: Monday, September 11, 2017 07:18 - CONCLUSION: Renal ultrasound within normal limits. Ramu Laguna MD Lumbar Spine MRI 09/11/17 0000 Signed Impressions: Service Date/Time: Monday, September 11, 2017 02:46 - CONCLUSION: There is a fluid filled tract which communicates from the L4-5 disc, through the left bony spinal canal and into the subdermal soft tissues. The various components are measured above. There is enhancement in the wall of the fluid collections in the the subcutaneous and intramuscular components of the tract. Aleksander Adler MD Chest X-Ray 09/11/17 0000 Signed Impressions: Service Date/Time: Wednesday, September 11, 2017 05:03 - CONCLUSION: Right IJ catheter in good position. No evidence of pneumothorax. Aleksander Adlre MD Physical Exam GENERAL: awake and alert, not in respiratory distress. SKIN: Warm and dry. Rash better No ecchymoses and no evidence of embolic lesions. HEAD: Atraumatic. Normocephalic. No temporal wasting, or tenderness. EYES: [place] conjunctiva. No petechia or hemorrhage. Pupils equal, round and reactive to light. Extraocular movements full and intact. No scleral icterus. No injection or drainage. EARS, NOSE AND THROAT: Nose without bleeding or purulent nasal discharge. No sinus tenderness. Mucous membranes pink and moist. No oral lesions noted. No exudate. No oral thrush. NECK: Trachea midline. Supple and not tender, no meningeal signs. No lymphadenopathy CARDIOVASCULAR: Regular rate and rhythm. No murmurs, rubs or gallops heard RESPIRATORY: Clear to auscultation. Breath sounds equal bilaterally. No rales , wheezing or rhonchi ABDOMEN: Soft, obese, non-tender, nondistended. Bowel sounds present and normoactive. No guarding. No rebound. No organomegaly. BACK: Well healed incision in his lower back, with min erythema, min indurated , area fullness looks same as yesterday EXTREMITIES: No clubbing, cyanosis, or edema. No joint effusion, has good ROM. No calf tenderness. Well perfused and warm. Notable for the rash. NEUROLOGICAL: Non-focal PSYCHIATRIC: Normal affect, calm and cooperative. 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 better - patient has taken Keflex and Bactrim in the past - he received IV Ancef for his surgery last Jul 27 RECOMMENDATION Stop Vanco If he remains stable off Abx, he can be D/C tomorrow from ID standpoint Neurosurgery has cleared patient for D/C - NS can reevaluate his back and decide on repeat imaging if felt to be indicated D/W patient Michelle Estrada MD Sep 14, 2017 14:06
[2017-09-14 16:45] VITALS: BP 147/85; PULSE 78; RESP 16; TEMP 97.5; O2SAT 96
[2017-09-14 20:36] VITALS: BP 113/64; PULSE 78; RESP 16; TEMP 97.7; O2SAT 99
[2017-09-15 00:30] VITALS: BP 119/73; PULSE 87; RESP 17; TEMP 96.8; O2SAT 97
[2017-09-15] MEDS ORDERED: VANCOMYCIN INJ 2,250 MG in SODIUM CHLORID 0.9% 500 ML INJ 500 ML IV SCH (01:00)
[2017-09-15 04:30] VITALS: BP 128/71; PULSE 77; RESP 17; TEMP 96.9; O2SAT 95
[2017-09-15 07:17] VITALS: PULSE 107
[2017-09-15] MEDS: GABAPENTIN 100 MG CAP PO SCH (07:43)
[2017-09-15] MEDS: FLUTICASONE 200 MCG/VILANTEROL 25 MCG INHALER INH SCH (07:44)
[2017-09-15] MEDS: PANTOPRAZOLE SOD 40 MG DELAYED RELEASE TAB PO SCH (07:51)
[2017-09-15] MEDS: SODIUM CHLORIDE 0.9% FLUSH 10 ML FLUSH IV FLUSH SCH (07:51)
[2017-09-15] MEDS: DOCUSATE SODIUM 50 MG/SENNA 8.6 MG TAB PO SCH (07:51)
[2017-09-15] MEDS: INSULIN ASPART SUPPLEMENTAL SCALE SQ SCH (07:51)
[2017-09-15] MEDS: HYDROCORTISONE SOD SUCCINATE 100 MG VIAL IV PUSH SCH (07:51)
[2017-09-15 08:00] VITALS: BP 163/75; PULSE 75; RESP 18; TEMP 96.2; O2SAT 98
[2017-09-15] MEDS ORDERED: GABA100C4 PO (09:59)
--- NOTE | 2017-09-15 10:13 | HHI.DS ---
Discharge Summary Admission Date Sep 11, 2017 at 03:57 Discharge Date: Sep 15, 2017 Admitting Diagnosis post operative complication (1) Post-operative complication ICD Codes: T81.9XXA - Unspecified complication of procedure, initial encounter Status: Acute (2) Rash and nonspecific skin eruption ICD Codes: R21 - Rash and other nonspecific skin eruption Status: Acute (3) Asthma ICD Codes: J45.909 - Unspecified asthma, uncomplicated Status: Chronic (4) HTN (hypertension) ICD Codes: I10 - Essential (primary) hypertension Status: Chronic (5) Diabetes mellitus type 2, noninsulin dependent ICD Codes: E11.9 - Type 2 diabetes mellitus without complications Status: Chronic (6) CLAUDY (acute kidney injury) ICD Codes: N17.9 - Acute kidney failure, unspecified Status: Acute (7) S/P lumbar laminectomy ICD Codes: Z98.890 - Other specified postprocedural states Consultants Dr. Sean Parson, Dr. Mcgowan Procedures 09/01/17 Needle aspiration of lumbar postoperative soft tissue fluid collection with Dr. Mcgowan CBC/BMP: 09/14/17 0430 09/14/17 0430 Significant Findings Laboratory Tests Test 09/13/17 05:04 09/14/17 04:30 09/14/17 12:00 Red Blood Count 3.84 MIL/MM3 (4.50-5.90) Hemoglobin 11.5 GM/DL (13.0-17.0) Hematocrit 34.4 % (39.0-51.0) Calcium Level 7.9 MG/DL (8.5-10.1) Chloride Level 108 MEQ/L (98-107) Vancomycin Level Trough 20.9 MCG/ML (5.0-10.0) Imaging 57 yo M with PMH of HTN, diabetes, obesity, and chronic LBP who underwent L4-L5 decompressive left hemilaminectomy, mesial facetectomy, foraminotomy with microsurgical resection of the disc on 07/27/[address] Parson. He was seen by Dr. Parson in clinic on 09/09 due to pain in his left back. He was afebrile at that time but reportedly had warmth on his back and was started on Bactrim and Keflex which he took. At around 4 pm on 09/10 he developed "cold sweats", dizziness, and worsening back pain to the point that he said he could barely make it to the bathroom.. He presented to [facility]. There he had temp of 100.0. CT scan demonstrated 8.6 x 7 cm fluid collection in the superficial fascia. It was felt to represent seroma though hematoma or abscess could not be excluded. He had a normal white count of 10. He was hypotensive with blood pressure in the 60s. He was given 1 L NS bolus, epinephrine 0.3 mg subcut, benadryl 25 mg po, epi 1 mg IV, Vancomycin 2 gram, Zosyn 4.5 gram, Morphine 2mg IV and Zofran 4 mg IV at outside hospital. R IJ CVL was placed and he was started on levophed which is running at 5 g per KG per minute. He was transferred to [facility] for neurosurgical consultation. MRI has been ordered. He currently complains of low back pain and thirst. He has a diffuse blanching erythematous rash over his entire thorax anteriorly and posteriorly and all extremities. He states the rash was present upon arrival to the outside hospital and it is not pruritic. He does have some palmar pruritus without palmar rash. He denies chest pain, shortness of breath, wheezing. He states he has been on burst steroids in the past up to 3 days for "his breathing" but denies any prolonged steroid use. It does not appear that he receives steroids at the outside hospital. PE at Discharge General: NAD, AAOx3 Chest: CTA Cardiac: Regular Abd: +BS, soft ND/NT Back: Lumbar incision well healed, healed with mild fluctuation without redness , warmth, drainage. Ext: No edema Hospital Course Post-operative complication - Patient is a 57 y/o male with HTN, diabetes, obesity, and chronic LBP who recently underwent L4-L5 decompressive left hemilaminectomy, mesial facetectomy, foraminotomy with microsurgical resection of the disc on by Dr. Parson. - He was seen outpt by Dr. Parson in clinic on 09/09 due to increased pain in his left back. He was afebrile at that time but reportedly had warmth on his back and was started on Bactrim and Keflex. - He presented to the ED at [facility] on 09/10 with "cold sweats", dizziness, and worsening back pain. There he had temp of 100.0. - CT Lumbar spine demonstrated 8.6 x 7 cm fluid collection in the superficial fascia. It was felt to represent seroma though hematoma or abscess could not be excluded. He had a normal white count of 10. He was hypotensive with blood pressure in the 60s. He was given 1 L NS bolus, Benadryl 25 mg po, epi 1 mg IV, Vancomycin 2 gram, Zosyn 4.5 gram, Morphine 2mg IV and Zofran 4 mg IV at outside hospital. 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 - Blood cultures (09/11) with no growth x 3 days - Cont. Gabapentin lower dose 100 mg TID - Lortab PRN and Morphine as needed for breakthrough pain - BC from [facility] were reportedly negative per ID, however pt was on Bactrim and Keflex prior to hospitalization - Pt was started on Meropenem 1 g IV Q8H and Vancomycin on 09/11. Pharmacy dosing for the Vanc - Meropenem was stopped on 09/13 - Vanco stopped per ID 09/14 - ID following cleared for DC - Pt still with labile BP ?need for re-imaging to be determined by Neurosurgery at outpatient follow up - follow up BP as outpatient with PCP- will continue to hold antihypertensives at DC patient reports he has home cuff and is able to monitor at home. - Pt cleared for DC per neurosurgery- follow up appointment 09/23/17 Rash and nonspecific skin eruption - Pt developed some sort of rash, etiology unclear, presumed to be related to his outpatient Bactrim or Keflex as patient says rash was present prior to presentation at outside hospital. - Pt is started on Solu-Cortef 50mg IV every 6 hours, Benadryl 50 IV every 6 hours, famotidine. - The PCN/Cephalopsporin were held - Meropenem and vanc DC'd per ID - Decreased steroids to once daily and wean off over next few days Asthma - Home meds continued, Breo Elipta - Pt is on RA - Cont. IS every hour WA - Albuterol every 2 hours as needed. HTN (hypertension) - Home meds, lisinopril 10 daily and HCTZ 12.5mg po daily have been held due to hypotension and acute kidney injury. - Monitor Diabetes mellitus type 2, noninsulin dependent - NovoLog SSI - Accu checks - Monitor closely while on steroids. - Hold home OHA, metformin 500 daily- will resume at DC CLAUDY (acute kidney injury) - Resolved. - Creatinine at outside hospital was 2.15. Baseline creatinine 0.9. - Pt received IV contrast at outside hospital 09/11, Cr on 09/12 was 0.94 S/P lumbar laminectomy - See above Pt Condition on Discharge: Stable Discharge Disposition: Discharge Home Discharge Instructions DIET: Follow Instructions for: Diabetic Diet Activities you can perform: See Additionl Instruction Other Activity Instructions: per neurosurgery Follow up Referrals: Neurosurgery - 1 Week with Ozzie Parson MD PCP Follow-up - [address] Edwards New Medications: Gabapentin (Gabapentin) 100 Mg Cap 100 MG PO TID for nerve pain, #90 CAP 0 Refills Continued Medications: Fluticasone-Vilanterol Inh (Breo Ellipta Inh) 200-25 Mcg/Act Inh 1 PUFF INH DAILY, #1 INHALER 0 Refills Use daily at the same time. Metformin (Metformin) 500 Mg Tab Discontinued Medications: Cephalexin (Cephalexin) 500 Mg Cap 500 MG PO Q8H for Infection, #42 CAP 0 Refills Gabapentin (Gabapentin) 300 Mg Cap 300 MG PO TID Hydrochlorothiazide (Hydrochlorothiazide) 12.5 Mg Tab 12.5 MG PO DAILY Lisinopril (Lisinopril) 10 Mg Tab 10 MG PO DAILY Sulfamethoxazole-Trimethoprim (Bactrim DS) 800-160 Mg Tab 1 TAB PO BID for Infection, #14 TAB 0 Refills Jen Jarquin Sep 15, 2017 10:13 Emanuel Goodwin MD Sep 15, 2017 15:14
--- NOTE | 2017-09-15 10:14 | HHI.DCPOC ---
Discharge Care Plan Diagnosis: (1) Rash and nonspecific skin eruption (2) CLAUDY (acute kidney injury) (3) Post-operative complication (4) S/P lumbar laminectomy (5) Hypotension Goals to Promote Your Health * To prevent worsening of your condition and complications * To maintain your health at the optimal level Directions to Meet Your Goals Take your medications as prescribed Follow your dietary instruction Follow activity as directed Keep your appointments as scheduled Take your immunizations and boosters as scheduled If your symptoms worsen call your PCP, if no PCP go to Urgent Care Center or Emergency Room Smoking is Dangerous to Your Health. Avoid second hand smoke Call the 24-hour hour crisis hotline for domestic abuse at Jen Jarquin Sep 15, 2017 10:14
[2017-09-15] MEDS: diphenhydrAMINE HCL 50 MG/ML VIAL IV PUSH SCH (11:23)
--- NOTE | 2017-09-15 11:41 | HHI.NSPN ---
(Chen Peck) Note Status Status: Progress Note (Chen Peck) Interval History Interval History Mr. Jung is a 57-year-old male who underwent a left L4 5 decompressive semi- laminectomy medial facetectomy foraminotomy and discectomy on 07/27/2017. He states that prior to surgery he had some pain in the left proximal lower extremity. He states that he was doing recently well until last week when he started to develop increasing aching in the low back with some pain radiating back down the left lower extremity. He has no complaint of weakness or numbness in the lower extremities and no complaint of bowel or bladder dysfunction. He has not had any fevers or chills. He was seen back in the neurosurgery clinic on 09/09/2017 and was started on Keflex and Bactrim. However last evening he started getting dizzy and sweating with generalized weakness. He reported to [facility] emergency room for evaluation and was noted to be hypotensive with systolic blood pressure in the 60s. He was given vancomycin and Zosyn along with a fluid bolus. He was started on a Levophed IV drip for the hypotension and transferred to [facility] emergency room for further evaluation. Today he states that he feels much better. He still has some aching pain in the left leg. No complaining of significant dizziness, vertigo today. No nausea or vomiting. 09/12: This morning the patient is seen up and about in the room. His gait is steady. He is disconnected from the monitor. He says his back feels tight and he has some spasms to the buttocks/back of the thighs. He does say he has numbness going down both lower extremities which he relates to circulation. Nursing reports that the patient has been haemodynamically stable and the norepinephrine drip was discontinued yesterday. 09/13: mild pulsating pain over the wound. denies fevers or chills. feeling much better today. hypotension improved. 09/14: final wound and blood cultures negative for infection. patient still has fluctuating episodes of mild hypotension. c/o of moderate discomfort over the wound site due to the swelling, but no drainage from his wound. 09/15: neuro stable overnight (Chen Peck) Labs, Micro, & Vital Signs Results Date Time Temp Pulse Resp B/P (MAP) Pulse Ox O2 Delivery O2 Flow Rate FiO2 09/15/17 08:00 96.2 75 18 163/75 (104) 98 09/15/17 07:17 Room Air 09/15/17 04:30 96.9 77 17 128/71 (90) 95 09/15/17 00:30 96.8 87 17 119/73 (88) 97 09/14/17 20:36 97.7 78 16 113/64 (80) 99 09/14/17 16:45 97.5 78 16 147/85 (105) 96 09/14/17 12:00 98.1 81 18 139/74 (95) 97 Constitutional Vital Signs Date Time Temp Pulse Resp B/P (MAP) Pulse Ox O2 Delivery O2 Flow Rate FiO2 09/15/17 08:00 96.2 75 18 163/75 (104) 98 09/15/17 07:17 Room Air 09/15/17 04:30 96.9 77 17 128/71 (90) 95 09/15/17 00:30 96.8 87 17 119/73 (88) 97 09/14/17 20:36 97.7 78 16 113/64 (80) 99 09/14/17 16:45 97.5 78 16 147/85 (105) 96 09/14/17 12:00 98.1 81 18 139/74 (95) 97 (Chen Peck) Review of Systems Constitutional: DENIES: Fever, Chills (Chen Peck) Physical Exam Alert and oriented x 3. Speech is fluent. Lumbar incision well healed, healed with mild fluctuation without redness, warmth, drainage. Motor: 5/5 to all major flexion & extension muscle groups to the lower extremities, left extensor hallucis longus 4+/5 (Chen Peck) Medications Current Medications Current Medications Medications (Trade) Dose Ordered Sig/Cherry Route PRN Reason Start Time Stop Time Status Last Admin Dose Admin Norepinephrine Bitartrate 250 ml @ 7.5 mls/hr TITRATE PRN IV Blood pressure management 09/11/17 01:45 09/11/17 11:59 Terbutaline Sulfate (Brethine Inj) 1 mg UNSCH PRN SQ For Extravasation 09/11/17 01:45 Fluticasone/ Vilanterol (Breo Ellipta 200-25 Inh) 1 puff DAILY INH 09/11/17 09:00 09/15/17 07:44 Gabapentin (Neurontin) 100 mg TID PO 09/11/17 09:00 09/15/17 07:43 Sodium Chloride 1,000 ml @ 125 mls/hr Q8H IV 09/11/17 05:08 09/14/17 13:11 Sodium Chloride (NS Flush) 2 ml UNSCH PRN IV FLUSH FLUSH AFTER USING IV ACCESS 09/11/17 05:15 09/13/17 00:17 Sodium Chloride (NS Flush) 2 ml BID IV FLUSH 09/11/17 09:00 09/14/17 18:51 Acetaminophen (Tylenol) 650 mg Q6H PRN PO FEVER >101F 09/11/17 05:15 09/11/17 09:32 Acetaminophen/ Hydrocodone Bitart ([place] 5-325 Mg) 1 tab Q4H PRN PO PAIN SCALE 1 TO 5 09/11/17 05:15 Morphine Sulfate (Morphine Inj) 2 mg Q2H PRN IV PUSH BREAKHTHROUGH PAIN 1-5 09/11/17 05:15 Pantoprazole Sodium (Protonix) 40 mg DAILY PO 09/11/17 09:00 09/11/17 08:58 Ondansetron HCl (Zofran Inj) 4 mg Q6H PRN IV PUSH NAUSEA OR VOMITING 09/11/17 05:15 Albuterol Sulfate (Albuterol Neb) 2.5 mg Q2HR NEB PRN INH SOB/WHEEZING 09/11/17 05:15 Miscellaneous Information 1 Q361D XX 09/11/17 05:15 Chlorhexidine Gluconate (Chlorhexidine 2% Cloth) 3 pack Taper DAILY@04 TOP 09/12/17 04:00 09/08/18 03:59 Chlorhexidine Gluconate (Chlorhexidine 2% Cloth) 3 pack UNSCH PRN TOP HYGIENIC CARE 09/11/17 05:15 Senna/Docusate Sodium (Magali-Colace) 1 tab BID PO 09/11/17 09:00 09/11/17 21:10 Magnesium Hydroxide (Milk Of Magnesia Liq) 30 ml Q12H PRN PO Mild constipation 09/11/17 05:15 Sennosides (Senokot) 17.2 mg Q12H PRN PO Moderate constipation 09/11/17 05:15 Bisacodyl (Dulcolax Supp) 10 mg DAILY PRN RECTAL SEVERE CONSITIPATION 09/11/17 05:15 Lactulose (Lactulose Liq) 30 ml DAILY PRN PO SEVERE CONSITIPATION 09/11/17 05:15 Acetaminophen/ Hydrocodone Bitart ([place] 5-325 Mg) 2 tab Q6H PRN PO PAIN 6-10 09/11/17 05:15 09/14/17 13:01 Morphine Sulfate (Morphine Inj) 4 mg Q4H PRN IV PUSH BREAKTHROUGH PAIN 6-10 09/11/17 05:15 Dextrose (D50w (Vial) Inj) 50 ml UNSCH PRN IV PUSH HYPOGLYCEMIA-SEE COMMENTS 09/11/17 05:30 Glucagon (Glucagon Inj) 1 mg UNSCH PRN OTHER HYPOGLYCEMIA-SEE COMMENTS 09/11/17 05:30 Insulin Aspart (NovoLOG SUPPLEMENTAL SCALE) 1 ACHS SLIDING SCALE SQ 09/11/17 08:00 09/12/17 17:00 Diphenhydramine HCl (Benadryl Inj) 50 mg Q6H IV PUSH 09/12/17 00:00 09/13/17 23:36 Hydrocortisone Sodium Succinate (SoluCORTEF INJ) 50 mg DAILY IV PUSH 09/14/17 09:00 09/14/17 09:48 Famotidine (Pepcid Inj) 20 mg Q12H IV PUSH 09/14/17 18:00 (Chen Peck) Medical Decision Making MDM Remarks 57 y/o male 1. 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 Hypotension, resolved, with fluctuating episodes of mild hypotension. final blood cultures negative for infection (Chen Peck) Plan Plan Remarks continue medical management clear to dc from NRS standpoint patient may follow up in the office at his next scheduled visit (Chen Peck) Attending Statement The exam, history, and the medical decision-making described in the above note were completed with the assistance of the mid-level provider. I reviewed and agree with the findings presented. I attest that I had a [id number] encounter with the patient on the same day, and personally performed and documented my assessment and findings in the medical record. (Ozzie Parson MD) Chen Peck Sep 15, 2017 11:41 Ozzie Parson MD Sep 16, 2017 11:35
[2017-09-15 12:00] VITALS: BP 114/56; PULSE 86; RESP 18; TEMP 97.1; O2SAT 98
[2017-09-16] MEDS ORDERED: PHARMACY ORDERED LAB ONE (12:45)
== END 2017-09-15 14:58 | disposition home or self-care (01) | DRG 92 ==
LOC: NEPC 01:07 → NEDA 03:57 → N03A 05:56 → N06A 09-12 13:41
PROVIDERS: ADMIT Emergency Medicine; ATTEND Emergency Medicine
PROC: 009T3ZX Drainage of Spinal Meninges, Percutaneous Approach, Diagnostic (ICD-10-PCS; principal; 2017-09-11)
DX: G97.82 Other postprocedural complications and disorders of nervous system (principal); E87.2 Acidosis; R57.9 Shock, unspecified; N17.9 Acute kidney failure, unspecified; Z68.42 Body mass index [BMI] 45.0-49.9, adult; G96.19 Other disorders of meninges, not elsewhere classified; I10 Essential (primary) hypertension; L53.9 Erythematous condition, unspecified; E11.9 Type 2 diabetes mellitus without complications; K21.9 Gastro-esophageal reflux disease without esophagitis; E66.01 Morbid (severe) obesity due to excess calories; J44.9 Chronic obstructive pulmonary disease, unspecified; G62.9 Polyneuropathy, unspecified; L27.0 Generalized skin eruption due to drugs and medicaments taken internally; T37.0X5A Adverse effect of sulfonamides, initial encounter; T36.1X5A Adverse effect of cephalosporins and other beta-lactam antibiotics, initial encounter; Y84.8 Other medical procedures as the cause of abnormal reaction of the patient, or of later complication, without mention of misadventure at the time of the procedure; Z72.0 Tobacco use; Z79.84 Long term (current) use of oral hypoglycemic drugs; Z88.1 Allergy status to other antibiotic agents; Z88.2 Allergy status to sulfonamides
CPT/HCPCS: 71010; 72158; 76775; 76937; 80048; 80053; 80202; 81001; 82533; 82550; 82945; 82948; 83605; 83690; 83735; 84100; 84484; 85025; 86140; 87040; 87070; 87205; 87641; 89051; 93005; 94150; 96365; 96368; 96375; A9577; J1200; J1720; J1815; J2185; J2543; J2920; J2930; J3370; J7030; J7040